=== PATIENT | male | born 1945 | race Caucasian/White ===

== ENCOUNTER 2024-03-13 11:06 | Outpatient (AMB) | payer MEDICARE, SELFPAY ==
--- NOTE | 2024-03-13 11:08 | MHC.OFFVIS ---
Intake Visit Reasons: HX Prostate CA/BPH/Stones(Prostectomy) Intake Note: Patient is present for HX PROSTATE CA/BPH/STONES Urology Medication:NONE Antibiotic Allergy:CIPRO,PENICILLIN Blood Thinner:NONE Linux Network Systems Administrator Required: No Allergies ciprofloxacin Allergy (Mild, Verified 03/13/24 11:09) Unknown Penicillins Allergy (Mild, Verified 03/13/24 11:09) Unknown HPI Comments Details: Remington is a pleasant male. He is a patient of Dr. Espana. He is seen for the following urologic conditions - prostate cancer - stress incontinence - nephrolithiasis Accompanied by his and daughter Primarily issue currently is nephrolithiasis Recommend intervention with laser of right renal stones and Uro risk analysis Nephrolithiasis Longstanding Multiple prior procedures Nothing in prior notes regarding Uro risk although patient states has been performed in the distant past Imaging - CT - right kidney 2 mm 4 mm calcification in the upper pole and 7 mm in the mid pole and 5 mm and 3 mm in the lower pole, left kidney 3 tiny 2 mm calcifications the upper pole Prostate cancer Prior radical prostatectomy Well-controlled PSA Stress incontinence Prior male sling procedure with good success [facility] Medical History (Updated 03/13/24 @ 12:38 by Julio Jeff MD) Depression Migraine 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 JANEY (stress urinary incontinence), male History of urinary frequency History of prostate cancer History of kidney stones Surgical History (Updated 03/07/24 @ 10:51 by MICHAEL Collins) History of ureteroscopy History of surgery History of lithotripsy H/O radical prostatectomy History of cystoscopy Review of Systems Const Denies chills and Denies fever(s) Card Reports no additional complaints and Denies syncope Resp Denies cough GI Denies abdominal pain and Denies heartburn Reports as per HPI and Denies change in libido Neuro Denies syncope Psych Denies change in libido Endo Denies change in libido Physical Exam Const General: cooperative, healthy appearing, comfortable and no acute distress Orientation/consciousness: patient oriented x3 HEENT Face and sinus: Yes normal facial exam Mouth: moist mucous membranes Neck Neck: Yes normal visual inspection, Yes full ROM and Yes trachea midline Chest Chest palpation & inspection: normal inspection of the chest Resp Effort & Inspection: normal respiratory effort, able to speak in complete sentences and no respiratory distress GI Inspection: Yes normal to inspection Back/Spine/Pelvis Cervical Spine: normal cervical lordosis Thoracic/Lumbar Spine: thoracic and lumbar spine normal to inspection Skin General skin exam: no rashes or lesions noted Neuro General: patient oriented x3, gait normal, tone normal and moves all extremities Extrem General: Yes normal to inspection and Yes capillary refill normal Results AMB Urinalysis, Automated UA Leukoctes 0 Kenia/uL Last Edit by ISAURA Ko on 03/13/24 11:36 UA Nitrite Negative Last Edit by ISAURA Ko on 03/13/24 11:36 UA Urobilinogen 0.2 mg/dL Last Edit by Sebas Nails CCM on 03/13/24 11:36 UA Protein 0 mg/dL Last Edit by ISAURA Ko on 03/13/24 11:36 UA pH 6.0 Last Edit by Sebas Nails [facility] on 03/13/24 11:36 UA Blood 0 Amado/uL Last Edit by Sebas Nails CCM on 03/13/24 11:36 UA Specific Lincoln 1.015 Last Edit by Sebas Nails CCM on 03/13/24 11:36 UA Ketone Negative Last Edit by Sebas Nails CCM on 03/13/24 11:36 UA Bilirubin 0 mg/dL [facility]bas [facility] 03/13/24 11:36 UA Glucose 0 mg/dL Last Edit by Sebas Nails [facility] on 03/13/24 11:36 Results Reviewed Results Reviewed: Laboratory Last Values Urine pH (Auto) 6.0 03/13/24 11:35 Specific Lincoln (Auto) 1.015 03/13/24 11:35 Urine Protein (Auto) 0 mg/dL 03/13/24 11:35 Glucose (UA)(Auto) 0 mg/dL 03/13/24 11:35 Urine Ketones (Auto) Negative 03/13/24 11:35 Urine Blood (Auto) 0 Amado/uL 03/13/24 11:35 Urine Nitrite (Auto) Negative 03/13/24 11:35 Urine Bilirubin (Auto) 0 mg/dL 03/13/24 11:35 Urine Urobilinogen (Auto) 0.2 mg/dL 03/13/24 11:35 Leukocyte Esterase (Auto) 0 Kenia/uL 03/13/24 11:35 Assessment & Plan Assessment & Plan (1) Nephrolithiasis: Code(s): N20.0 - Calculus of kidney Category: Medical Plan Ureteroscopy We discussed the nature of the decision and reasonable alternatives for performing ureteroscopy. Options such as medical therapy were discussed. Interventions include chemical dissolution, ESWL, ureteroscopy with laser lithotripsy and stent placement, PCNL. The relative uncertainties and benefits related to each alternate procedure were adequately discussed. General surgical risks including, but not limited to - pain, bleeding, infection, myocardial infarction, pulmonary embolus, deep vein thrombosis and cerebrovascular accident which may result in further hospitalization were discussed. Full disclosure of the procedure as well as all major risks, benefits and complications were discussed including but not limited to damage to the urethra, bladder and kidney infection, damage to the ureter, stent migration or malposition, scarring to the renal pelvis, remnant stone fragments, subsequent stone passage with need for secondary procedures. The overall secondary procedure rate is approximately 10-15%. The overall clearance rate is approximately 90-95%. Success of the procedure in the short-term does not necessarily guarantee that long-term success will be maintained. Suitable follow up will need to be maintained. The patient showed understanding of discussion and wishes to proceed with - cystoscopy, retrograde, ureteroscopy, possible lithotripsy/stone basketing and stent on the right side Orders: Orders URORISK 03/13/24 N20.0 - Calculus of kidney AMB Urinalysis Automated 03/13/24 Z13.9 - Encounter for screening, unspecified Patient Instructions: Imaging studies, laboratory and physical exam results were discussed and reviewed in detail. No major barriers to patient understanding were identified. An opportunity to ask questions regarding the treatment plan was provided. All questions were answered. The patient expressed understanding and agreement with the above treatment plan. The patient is aware they should contact our office by phone for worsening of their current condition or the appearance of new urologic symptoms. Compliance is encouraged with any medications and followup testing that is ordered. It is a privilege to participate in the urologic care of your patient. If you have any questions or concerns regarding treatment for the above conditions, or other urologic issues, please do not hesitate to contact me. The office telephone contact is [phone]. This note is constructed using voice recognition software. While every effort has been made to ensure accuracy teletypesetter monitor errors may have been included. Yours sincerely, Dr Julio Jeff MD, [facility] - Urology Providers of Expert, Compassionate Care for the Genitourinary System Coding Level of Care Code New Pt Level 4 (49346) Diagnoses Nephrolithiasis N20.0
== END 2024-03-13 12:44 | disposition home or self-care (01) ==
PROVIDERS: PCP Internal Medicine; Visit Provider Urology
DX: N20.0 Calculus of kidney (principal)
CPT/HCPCS: 99204

== ENCOUNTER → 2024-03-13 11:06 | Outpatient (BNVA) | payer MEDICARE, SELFPAY | PROVIDERS: PCP Internal Medicine; Visit Provider Urology | DX: N20.0 Calculus of kidney (principal) | CPT/HCPCS: 81003; 99202 ==

== ENCOUNTER 2024-04-16 05:55 | Day surgery (SDC) | payer MEDICARE, SELFPAY ==
[2024-04-12 09:48] VITALS: BMI 21.1
[2024-04-16 06:15] VITALS: BMI 22.0
[2024-04-16 06:23] VITALS: BP 118/59; PULSE 62; RESP 16; TEMP 36.9; O2SAT 98
[2024-04-16] MEDS: Lactated Ringers 1,000 ML 100 ML IVCONT (07:02)
--- NOTE | 2024-04-16 07:10 | PC.NURSE ---
Patient in preop. Per him, last time I had general anesthesia in [place], there was still food in my stomach. I followed all of the rules and ate/drank nothing after midnight, but they told me when I woke up that I still had food in my stomach . Dr. Almanza made aware of this. No new orders at this time.
--- NOTE | 2024-04-16 07:30 | P.CONAN_ITS ---
Documented by User: Jenni Caceres NP 04/13/24 10:10 HPI - Anesthesia Eval Consult details Narrative: 78yo M for Right Cystoscopy, Ureteroroscopy, Retro, Laser with stent placement Follows Cardiology for Asc aorta, aortic insufficiency. Stable at 01/2024 office visit. (also follows with [place] electronic console display operator) [facility] Active Problems Active Problems: All Active Problems Nephrolithiasis (Acute) Past Medical History Medical History (Updated 04/12/24 @ 09:47 by Rose Foreman RN) Prostate cancer GERD (gastroesophageal reflux disease) Hyperlipidemia Ascending aorta dilatation Aortic valve insufficiency Depression Migraine 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 JANEY (stress urinary incontinence), male History of urinary frequency History of prostate cancer History of kidney stones Surgical History Surgical History (Updated 04/16/24 @ 06:55 by Anay Fountain RN) Hx laparoscopic cholecystectomy History of repair of hiatal hernia History of ureteroscopy History of surgery History of lithotripsy H/O radical prostatectomy History of cystoscopy Social History Social History Are you a primary patient care technician to a significant other at home: No Do you presently have visiting nurse or other home services: No Patient Tobacco Use Status: Never used Tobacco Use of substances other than those prescribed or required for medical reasons: No Have you been hit, kicked, punched, or otherwise hurt by someone within the past year? If so, by whom?: No Are you DNR?: No Advance Directives: No Advance Directives Information Provided: Yes (HCP is Farhat (Daughter) per patient) Advance Directives on File: No Recently lost weight without trying: No How much weight loss: Not applicable Eating poorly because of decreased appetite: No Nutrition screen score: 0 Nutrition Risks: No Nutritional Risk Poor oral hygiene: No Meds Allergies Allergy/AdvReac Type Severity Reaction Status Date / Time ciprofloxacin Allergy Mild Hypertensio Verified 04/16/24 06:28 n Penicillins Allergy Mild Hypertensio Verified 04/16/24 06:28 n Home Medications ?Medication ?Instructions ?Recorded ?Confirmed ?Last Taken ?Type vwfyrxpwwx-shgzitmvrohmb-ytrqaaaq 1 cap PO Q8H PRN Headache 03/12/24 04/16/24 Unknown History 50 mg-300 mg-40 mg capsule citalopram 20 mg tablet 20 mg PO DAILY 03/12/24 04/16/24 Unknown History loperamide 2 mg capsule 2 mg PO QID PRN diarrhea 03/12/24 04/16/24 Unknown History pantoprazole 40 mg tablet,delayed 40 mg PO BID 03/12/24 04/16/24 Unknown History release pravastatin 10 mg tablet 10 mg PO DAILY 03/12/24 04/16/24 Unknown History propranolol 20 mg tablet 20 mg PO DAILY 04/16/24 04/16/24 04/15/24 History Exam Height,Weight and Vital Signs: Height 5 ft 7 in Weight 61.235 kg Narrative Narrative: EKG 01/2024 SB @ 58 ECHO 2022 Nml LV chamber size, wall thickness, and sys function LVEF 55% No regional wma Nml RV size and sys function Nml PASP Atria nml in size Ascending aortic dilatation 4.1cm Mild to mod aortic insufficiency Assessment and Plan Assessment Anesthesia Assessment: Chart Reviewed Documented by User: Kiana Almanza DO 04/16/24 07:37 [facility] Past Medical History Medical History (Updated 04/12/24 @ 09:47 by Rose Foreman RN) Prostate cancer GERD (gastroesophageal reflux disease) Hyperlipidemia Ascending aorta dilatation Aortic valve insufficiency Depression Migraine 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 JANEY (stress urinary incontinence), male History of urinary frequency History of prostate cancer History of kidney stones Family History Family history of problems with anesthesia: No Surgical History Surgical History (Updated 04/16/24 @ 06:55 by Anay Fountain RN) Hx laparoscopic cholecystectomy History of repair of hiatal hernia History of ureteroscopy History of surgery History of lithotripsy H/O radical prostatectomy History of cystoscopy History of Problems with Anesthesia: No Social History Social History Are you a primary patient care technician to a significant other at home: No Do you presently have visiting nurse or other home services: No Patient Tobacco Use Status: Never used Tobacco Use of substances other than those prescribed or required for medical reasons: No Have you been hit, kicked, punched, or otherwise hurt by someone within the past year? If so, by whom?: No Are you DNR?: No Advance Directives: No Advance Directives Information Provided: Yes (HCP is Yazgus (Daughter) per patient) Advance Directives on File: No Recently lost weight without trying: No How much weight loss: Not applicable Eating poorly because of decreased appetite: No Nutrition screen score: 0 Nutrition Risks: No Nutritional Risk Poor oral hygiene: No Meds Allergies Allergy/AdvReac Type Severity Reaction Status Date / Time ciprofloxacin Allergy Mild Hypertensio Verified 04/16/24 06:28 n Penicillins Allergy Mild Hypertensio Verified 04/16/24 06:28 n Home Medications ?Medication ?Instructions ?Recorded ?Confirmed ?Last Taken ?Type jjjyklqcwo-puijxbzwklmvu-qgrdguso 1 cap PO Q8H PRN Headache 03/12/24 04/16/24 Unknown History 50 mg-300 mg-40 mg capsule citalopram 20 mg tablet 20 mg PO DAILY 03/12/24 04/16/24 Unknown History loperamide 2 mg capsule 2 mg PO QID PRN diarrhea 03/12/24 04/16/24 Unknown History pantoprazole 40 mg tablet,delayed 40 mg PO BID 03/12/24 04/16/24 Unknown History release pravastatin 10 mg tablet 10 mg PO DAILY 03/12/24 04/16/24 Unknown History propranolol 20 mg tablet 20 mg PO DAILY 04/16/24 04/16/24 04/15/24 History Exam Exam Date and Time: 04/16/24 0730 Height,Weight and Vital Signs: Height 5 ft 7 in Weight 61.235 kg Vital Signs Temperature 98.4 F 04/16/24 06:23 Pulse Rate 62 04/16/24 06:23 Respiratory Rate 16 04/16/24 06:23 Blood Pressure 118/59 L 04/16/24 06:23 Pulse Oximetry 98 04/16/24 06:23 Oxygen Delivery Method Room Air 04/16/24 06:23 Temperature 98.4 F 04/16/24 06:23 Pulse Rate 62 04/16/24 06:23 Respiratory Rate 16 04/16/24 06:23 Blood Pressure 118/59 L 04/16/24 06:23 Pulse Oximetry 98 04/16/24 06:23 Oxygen Delivery Method Room Air 04/16/24 06:23 Airway Mallampati Class: II TM Dist: >3cm Neck ROM: Limited Loose/Missing/Broken Teeth: No (patient denies any loose or broken teeth) Heart: S1S2 Lungs: CTAb Assessment and Plan Final Anesthetic Review Family History of Problems with Anesthesia: No History of Problems with Anesthesia: No NPO: Yes ASA Class: III Final Preanesthetic Review: No Changes in Pt Med Stat, Meds/Allgs Chart Reviewed, Consent Obtained/Reviewed and Anes Risks/Benef Reviewed Patient Risk: Intermediate Procedure Risk: Low Anesthetic Plan Anesthetic Plan: GA and Agree w/ Assess. and Plan Disposition: Standard PACU
--- NOTE | 2024-04-16 07:45 | MHC.SHP ---
Pre-Procedural Eval Section A - 24 Hr Update-Section A only Date of Service: 04/16/24 The patient is an INPATIENT: No Changes since office visit: No Cold of Flu in the past 2 weeks, No New Medical Problems, No Changes in Medication and No Patient answered all questions The patient has been examined within 24 hours of the surgical procedure. The History & Physical has been completed within 30 days and I have reviewed it.: Yes Section B - Complete if H&P > 30 days Chief Complaint: Calculus of kidney Details of Present Illness: Right renal stones Relevant Family History (Specify if Yes): No Relevant Social History: None Present Medications: see Short Stay Collaborative assessment Medical History: No relevant PMH History of Previous Operations: No relevant previous surgery Allergies: Allergies Allergy/AdvReac Type Severity Reaction Status Date / Time ciprofloxacin Allergy Mild Hypertensio Verified 04/16/24 06:28 n Penicillins Allergy Mild Hypertensio Verified 04/16/24 06:28 n Review of Systems Sugical H&P ROS: Negative: Constitution, Cardiovascular, Respiratory, Neurological, Psychiatric, Hem-Onc, Allergic/Immunologic, Gastrointestinal, Genitourinary, Musculoskeletal, Integumentary, Endocrine and Eyes/Ears/Nose/Throat Exam Surgical H&P Exam: Normal: HEENT, Normal: Heart, Normal: Lungs, Normal: Extremities, Normal: Abdomen, Normal: Skin and Normal: Neurological Plan Diagnosis/Plan: Unchanged (right retrograde with laser lithotripsy) I have reviewed the history and physical and performed a pertinent physical examination on my patient. No changes have occurred unless specified. Time Spent With Patient Time: Total time managing care of this patient today ____ minutes.
--- NOTE | 2024-04-16 08:23 | W.PM.OPN ---
Operative Note Operative Note Date of Service: 04/16/24 Narrative: PreOperative Diagnosis: Right renal stones Post Operative Diagnosis: Right renal stones Procedure: - cystoscopy, right retrograde - right dilatation of ureteric orifice under fluoroscopy - right ureteroscopy, laser lithotripsy, stone basketing - right stent placement Surgeon: Dr Julio Jeff Anesthesia: General Indications for procedure: Recent emergency room admission with multiple stones at 4 and [address] scan Procedure: After informed consent was verified patient was brought to the operating placed in supine position. Anesthesia was administered per protocol. Patient was placed in modified dorsal lithotomy position and prepped and draped in a sterile fashion. Safety pause time-out and side of surgery confirmed. Antibiotics confirmed. 22 Kinyarwanda cystoscope was inserted per urethra. Bladder was normal in its entirety. Both ureteric orifices were in normal position. The right ureteric orifice was cannulated and a retrograde examination was performed. No filling defects seen within right ureter. A Sensor guidewire was placed up to the level of the renal pelvis under fluoroscopy. The rigid cystoscope was removed and the inner cannula of ureteric access sheath was used under fluoroscopy to dilate the ureteric orifice. The ureteric access sheath was placed and the inner cannula with access wire removed. The digital flexible ureteral scope was placed. The renal pelvis was examined. Two small stones consistent with CT findings found in mid pole. There were submucosal stones throughout the kidney which were small in nature. The 270 nm holmium fiber was used to break the stones into small pieces. A 1.6 Fr ZeroTip basket was used to remove stone fragments. At the completion of the stone procedure a Sensor wire was placed back into the renal pelvis. The rigid cystoscope was backloaded over the wire and advanced into the bladder. A 6 Kinyarwanda by 24 cm double-J stent was placed into the renal pelvis and bladder under a combination of fluoroscopy and direct visualization. The string was left on the stent and using a Tegaderm was attached to the penis The bladder was emptied. The patient tolerated the procedure well and was extubated in the operating room, and transferred in stable condition to the recovery area. Pathology: Stones Drains: Stent as above
[2024-04-16 08:30] VITALS: BP 131/62; PULSE 68; RESP 14; TEMP 36.6; O2SAT 98
[2024-04-16 08:35] VITALS: BP 130/61; PULSE 65; RESP 14; O2SAT 99
[2024-04-16 08:40] VITALS: BP 126/61; PULSE 69; RESP 16; O2SAT 97
[2024-04-16 08:45] VITALS: BP 117/55; PULSE 66; RESP 16; TEMP 36.6; O2SAT 97
[2024-04-16] MEDS: Acetaminophen 325 MG TABLET 650 MG PO (08:49)
[2024-04-16] MEDS: Phenazopyridine HCL 100 MG TABLET PO (08:50)
[2024-04-16 09:00] VITALS: TEMP 36.6
[2024-04-25 19:28] LABS: Stone Source RIGHT RENAL STONE
== END 2024-04-16 09:31 | disposition home or self-care (01) ==
PROVIDERS: Visit Provider Urology
PROC: (CPT 52356; principal; 2024-04-16 07:30)
DX: N20.0 Calculus of kidney (principal); Z87.442 Personal history of urinary calculi; N40.1 Benign prostatic hyperplasia with lower urinary tract symptoms; N39.3 Stress incontinence (female) (male); Z85.46 Personal history of malignant neoplasm of prostate; F32.A Depression, unspecified; G43.909 Migraine, unspecified, not intractable, without status migrainosus; Z88.0 Allergy status to penicillin; Z88.1 Allergy status to other antibiotic agents; Z98.890 Other specified postprocedural states
CPT/HCPCS: 52356; 82365; 88300; C1758; C1769; C1894; C2617; J1100; J1885; J1956; J2003; J2405; J2704; J3010; Q9967

== ENCOUNTER → 2024-04-16 05:55 | Outpatient (BNV) | payer MEDICARE, SELFPAY | PROVIDERS: Visit Provider Urology | DX: N20.0 Calculus of kidney (principal) | CPT/HCPCS: 52356; 74420 ==

== ENCOUNTER 2024-04-25 08:46 | Outpatient (AMB) | payer MEDICARE, SELFPAY ==
--- NOTE | 2024-04-25 09:07 | MHC.OFFVIS ---
Intake Visit Reasons: Stent removal/Litho(set) Intake Note: Patient is present for STENT REMOVAL/LITHO Urology Medication:TAMSULOSIN Antibiotic Allergy:PENICILLINS,CIPROFLOXACIN Blood Thinner:NONE Edging Catcher Required: No Allergies ciprofloxacin Allergy (Mild, Verified 04/25/24 09:09) Hypertension Penicillins Allergy (Mild, Verified 04/25/24 09:09) Hypertension HPI Comments Details: Remington is a pleasant male. He is a patient of Dr. Espana. He is seen for the following urologic conditions - prostate cancer - stress incontinence - nephrolithiasis Here for stent removal Stone composition pending Uro risk complete Low volume, borderline low citrate, high oxalate Stent on string Suggest 1 oz lemon juice per day Increase fluid intake to target 64-80 oz Nephrolithiasis Longstanding Multiple prior procedures Nothing in prior notes regarding Uro risk although patient states has been performed in the distant past Imaging - CT - right kidney 2 mm 4 mm calcification in the upper pole and 7 mm in the mid pole and 5 mm and 3 mm in the lower pole, left kidney 3 tiny 2 mm calcifications the upper pole Uro risk - 03/15 - low volume 1000 cc, high oxalate 37, borderline low citrate 435 Prostate cancer Prior radical prostatectomy Well-controlled PSA Stress incontinence Prior male sling procedure with good success PFSH Medical History (Updated 04/12/24 @ 09:47 by Rose Foreman RN) Prostate cancer GERD (gastroesophageal reflux disease) Hyperlipidemia Ascending aorta dilatation Aortic valve insufficiency Depression Migraine 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 JANEY (stress urinary incontinence), male History of urinary frequency History of prostate cancer History of kidney stones Surgical History (Updated 04/16/24 @ 06:55 by Anay Fountain RN) Hx laparoscopic cholecystectomy History of repair of hiatal hernia History of ureteroscopy History of surgery History of lithotripsy H/O radical prostatectomy History of cystoscopy Social History Are you a primary child care counselor to a significant other at home: No Do you presently have visiting nurse or other home services: No Patient Tobacco Use Status: Never used Tobacco Review of Systems Const Denies chills and Denies fever(s) Card Reports no additional complaints and Denies syncope Resp Denies cough GI Denies abdominal pain and Denies heartburn Reports as per HPI and Denies change in libido Neuro Denies syncope Psych Denies change in libido Endo Denies change in libido Physical Exam Const General: cooperative, healthy appearing, comfortable and no acute distress Orientation/consciousness: patient oriented x3 HEENT Face and sinus: Yes normal facial exam Mouth: moist mucous membranes Neck Neck: Yes normal visual inspection, Yes full ROM and Yes trachea midline Chest Chest palpation & inspection: normal inspection of the chest Resp Effort & Inspection: normal respiratory effort, able to speak in complete sentences and no respiratory distress GI Inspection: Yes normal to inspection Back/Spine/Pelvis Cervical Spine: normal cervical lordosis Thoracic/Lumbar Spine: thoracic and lumbar spine normal to inspection Skin General skin exam: no rashes or lesions noted Neuro General: patient oriented x3, gait normal, tone normal and moves all extremities Extrem General: Yes normal to inspection and Yes capillary refill normal Results AMB Urinalysis, Automated UA Leukoctes 125 Kenia/uL Last Edit by ISAURA Ko on 04/25/24 09:27 UA Nitrite Negative Last Edit by ISAURA Ko on 04/25/24 09:27 UA Urobilinogen 0.2 mg/dL Last Edit by ISAURA Ko on 04/25/24 09:27 UA Protein 300 mg/dL Last Edit by ISAURA Ko on 04/25/24 09:27 UA pH 6.0 Last Edit by ISAURA Ko on 04/25/24 09:27 UA Blood 200 Amado/uL Last Edit by ISAURA Ko on 04/25/24 09:27 UA Specific [place] 1.030 Last Edit by ISAURA Ko on 04/25/24 09:27 UA Ketone Negative Last Edit by ISAURA Ko on 04/25/24 09:27 UA Bilirubin 0 mg/dL Last Edit by ISAURA Ko on 04/25/24 09:27 UA Glucose 0 mg/dL Last Edit by ISAURA Ko on 04/25/24 09:27 Results Reviewed Results Reviewed: Laboratory Last Values Urine pH (Auto) 6.0 04/25/24 09:26 Specific [place] (Auto) 1.030 04/25/24 09:26 Urine Protein (Auto) 300 mg/dL 04/25/24 09:26 Glucose (UA)(Auto) 0 mg/dL 04/25/24 09:26 Urine Ketones (Auto) Negative 04/25/24 09:26 Urine Blood (Auto) 200 [place]/uL 04/25/24 09:26 Urine Nitrite (Auto) Negative 04/25/24 09:26 Urine Bilirubin (Auto) 0 mg/dL 04/25/24 09:26 Urine Urobilinogen (Auto) 0.2 mg/dL 04/25/24 09:26 Leukocyte Esterase (Auto) 125 [place]/uL 04/25/24 09:26 Assessment & Plan Assessment & Plan (1) Nephrolithiasis: Code(s): N20.0 - Calculus of kidney Category: Medical Plan Three-month follow-up renal ultrasound Orders: Orders AMB Urinalysis Automated Today Z13.9 - Encounter for screening, unspecified US renal BI 3 Months N20.0 - Calculus of kidney Patient Instructions: Imaging studies, laboratory and physical exam results were discussed and reviewed in detail. No major barriers to patient understanding were identified. An opportunity to ask questions regarding the treatment plan was provided. All questions were answered. The patient expressed understanding and agreement with the above treatment plan. The patient is aware they should contact our office by phone for worsening of their current condition or the appearance of new urologic symptoms. Compliance is encouraged with any medications and followup testing that is ordered. It is a privilege to participate in the urologic care of your patient. If you have any questions or concerns regarding treatment for the above conditions, or other urologic issues, please do not hesitate to contact me. The office telephone contact is [phone]. This note is constructed using voice recognition software. While every effort has been made to ensure accuracy medical records assistant errors may have been included. Yours sincerely, Dr Julio Jeff MD, [facility] - Urology Providers of Expert, Compassionate Care for the Genitourinary System Coding Level of Care Code Est Pt Level 3 (40825) Diagnoses Nephrolithiasis N20.0
== END 2024-04-25 09:51 | disposition home or self-care (01) ==
PROVIDERS: PCP Internal Medicine; Visit Provider Urology
DX: Z13.9 Encounter for screening, unspecified (principal); N20.0 Calculus of kidney
CPT/HCPCS: 99213

== ENCOUNTER → 2024-04-25 08:46 | Outpatient (BNVA) | payer MEDICARE, SELFPAY | PROVIDERS: PCP Internal Medicine; Visit Provider Urology | DX: N20.0 Calculus of kidney (principal) | CPT/HCPCS: 81003; 99212 ==

== ENCOUNTER 2024-05-25 09:54 | Outpatient (REF) | payer MEDICARE, SELFPAY ==
--- NOTE | ~2024-05-25 | US_ITS ---
EXAMINATION: US KIDNEY BILATERAL HISTORY: N20.0 - Calculus of kidney TECHNIQUE: Real-time grayscale ultrasound imaging of the kidneys was performed and images were reviewed. COMPARISON: There are no prior studies for comparison. FINDINGS: Right kidney: The right kidney measures 10.1 x 5.3 x 5.0 cm. The right kidney is echogenic and demonstrates cortical thinning. There is a 1.8 x 1.5 x 1.6 cm cyst in the interpolar region. There is a 6 x 4 x 9 mm nonobstructing calculus in the interpolar region. There is no hydronephrosis. Left Kidney: The left kidney measures 10.5 x 5.0 x 4.8 cm. There is mild renal cortical thinning. There are no masses. Multiple calculi are noted in the mid to lower pole regions measuring up to 6 mm in size. There is no hydronephrosis. US/US renal BI IMPRESSION: Bilateral nephrolithiasis as described without evidence of hydronephrosis. Bilateral renal cortical thinning. Electronically signed by: Daniel Emmanuel MD 05/28/2024 03:55 PM DARLENE DE LA CRUZ
== END 2024-05-25 09:55 | disposition home or self-care (01) ==
LOC: HO.HMGCX 09:54
PROVIDERS: PCP Internal Medicine; Visit Provider Urology
DX: N20.0 Calculus of kidney (principal)
CPT/HCPCS: 76775

== ENCOUNTER → 2024-05-25 10:08 | Outpatient (BNV) | payer MEDICARE, SELFPAY | PROVIDERS: PCP Internal Medicine; Visit Provider Radiology Diagnostic Radiology | DX: N20.0 Calculus of kidney (principal) | CPT/HCPCS: 76775 ==

== ENCOUNTER 2024-07-25 08:15 | Outpatient (AMB) | payer MEDICARE, SELFPAY ==
--- NOTE | 2024-07-25 08:15 | A.OFFVIS_ITS ---
Intake Visit Reasons: /US- phone call, no cell(set) Intake Note: Patient is present for telehealth 3 month/US Urology Medication:TAMSULOSIN Antibiotic Allergy:PENICILLINS,CIPROFLOXACIN Blood Thinner:NONE Twister Tender Paper Required: No Allergies ciprofloxacin Allergy (Mild, Verified 07/25/24 08:16) Hypertension Penicillins Allergy (Mild, Verified 07/25/24 08:16) Hypertension HPI Comments Details: Remington is a pleasant male. He is a patient of Dr. Espana. He is seen for the following urologic conditions - prostate cancer - stress incontinence - nephrolithiasis Telemedicine Evaluation 15 min Consultation [employer] Jaret Video Discussed stone composition - calcium oxalate monohydrate 45% Prior Uro risk showed low volume a 1000 cc in high oxalate 37 Is working to maintain fluid intake and reduce oxalate containing foods Six-month follow-up imaging with Uro risk Nephrolithiasis Longstanding Multiple prior procedures Nothing in prior notes regarding Uro risk although patient states has been performed in the distant past Imaging - CT - right kidney 2 mm 4 mm calcification in the upper pole and 7 mm in the mid pole and 5 mm and 3 mm in the lower pole, left kidney 3 tiny 2 mm calcifications the upper pole - 07/17 renal ultrasound bilateral 4 mm stones Uro risk - 03/15 - low volume 1000 cc, high oxalate 37, borderline low citrate 435 Intervention - 04/16 emergency room right ureteroscopy Composition - 04/16 Calcium Oxalate Dihydrate ([place]) 10%Calcium Oxalate Monohydrate ([place]) 45%Carbonate Apatite ([place]llite) 45% Prostate cancer Prior radical prostatectomy Well-controlled PSA Stress incontinence Prior male sling procedure with good success PFSH Medical History Prostate cancer GERD (gastroesophageal reflux disease) Hyperlipidemia Ascending aorta dilatation Aortic valve insufficiency Depression Migraine 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 JANEY (stress urinary incontinence), male History of urinary frequency History of prostate cancer History of kidney stones Surgical History Hx laparoscopic cholecystectomy History of repair of hiatal hernia History of ureteroscopy History of surgery History of lithotripsy H/O radical prostatectomy History of cystoscopy Social History Are you a primary gericare aide teacher to a significant other at home: No Do you presently have visiting nurse or other home services: No Patient Tobacco Use Status: Never used Tobacco Review of Systems Const All systems reviewed & are unremarkable except as noted in HPI and below Reports no additional complaints Resp Reports no additional complaints GI Reports no additional complaints Reports as per HPI Musc Reports no additional complaints Physical Exam Telemedicine evaluation Appropriate responses Regular breathing rate and rhythm HEENT Head: Yes normal to inspection Ears: hearing grossly normal bilaterally Eyes General: appearance normal, both eyes and all related structures Neck Neck: Yes normal visual inspection Chest Chest palpation & inspection: normal inspection of the chest Resp Effort & Inspection: normal respiratory effort and able to speak in complete sentences Telehealth Telehealth Telehealth Platform: [employer] Location of provider rendering services: practice address Location of patient: address on file Patient Identification confirmed using: Name, : Yes Telehealth method: video Patient verbally consented to treatment: Yes Patient verbally consented to billing insurance company: Yes Patient informed of any privacy concerns related to visit: Yes Minutes spent on Phone/Video with Pt.: 15 Assessment & Plan Assessment & Plan (1) Nephrolithiasis: Comment: Recurrent calcium oxalate stone Code(s): N20.0 - Calculus of kidney Category: Medical Plan Target increased fluid and decreased oxalate Orders: Orders US renal BI 6 Months N20.0 - Calculus of kidney URORISK Today N20.0 - Calculus of kidney Patient Instructions: This note is constructed using voice recognition software. While every effort has been made to ensure accuracy dental nurse errors may have been included. Imaging studies, laboratory and physical exam results were discussed and reviewed in detail. No major barriers to patient understanding were identified. An opportunity to ask questions regarding the treatment plan was provided. All questions were answered. The patient expressed understanding and agreement with the above treatment plan. The patient is aware they should contact our office by phone for worsening of their current condition or the appearance of new urologic symptoms. Compliance is encouraged with any medications and followup testing that is ordered. It is a privilege to participate in the urologic care of your patient. If you have any questions or concerns regarding treatment for the above conditions, or other urologic issues, please do not hesitate to contact me. The office telephone contact is [phone]. Sincerely, Dr Julio Jeff MD, [facility] - Urology Compassionate Specialist Care for the Genitourinary System Coding Level of Care Code Tele Est Pt Level 3 (43100) Complex EM visit Add On G2211 Diagnoses Nephrolithiasis N20.0
--- OUTSIDE RECORDS SUMMARY | 2024-07-25 08:36 | XMS_ITS ---
Author Organization [facility] Address [address] [place], [place] [phone] Care Team Providers Care Wax Blender Name Role Phone Medical [facility] are Provider [phone] ACOSTA SIERRA Unavailable [phone] REASON FOR VISIT ORDER 05.10.24 Encounters Encounter Location Date Provider Diagnosis [facility] [address] [place], [place] [phone] 06/11/2024 ACOSTA SIERRA Plan Of Treatment Next Appt Details Provider Name:ACOSTA SIERRA , 07/30/2024 09:00:00 AM, [address], [address], [place], [place], [phone], Provider Name:ACOSTA SIERRA , 08/06/2024 12:40:00 PM, [address], [address], [place], [place], [phone], Progress Notes * RONALD NICHOLS RDOB: [birth year] (79 yo M)Acc No.[id number]:06/11/2024 Patient:?RONALD NICHOLS Provider:?ACOSTA SIERRA DO :1945???Age:79 Y???Sex:Male Kris e:06/11/2024 Address:[address] [place], [id number] Pcp:[facility]ier [facility] [place] [place] [facility] Subjective: * Chief Complaints: * ???1. ORDER 05.10.24. * Medical History:? Objective: * Vitals:? Assessment: Plan: * Treatment: * Billing Information: * Visit Code:? * Procedure Codes:? * Electronic signature of VALORIE SIERRA DO on 07/25/2024 at 08:36 AM EST Sign off status: Pending * Provider:CAMERON SIERRA DO Date:?06/11 Generated for Letty foley/Emily/Wendi on:?07/25/2024 08:36 AM EST
--- OUTSIDE RECORDS SUMMARY | 2024-07-25 08:36 | XMS_ITS ---
Author Organization [facility] Address [address], [place] [id number] Care Team Providers Care Punch Finisher Name Role Phone [facility] are Provider [phone] ACOSTA SIERRA Unavailable [phone] Allergies Allergen (clinical drug ingredient) Drug/Non Drug Allergy documented on EMR Reaction Allergy Type Onset Date Status Substance with penicillin structure and antibacterial mechanism of action (substance) Penicillins (uncoded) Unknown Allergy Active azithromycin Azithromycin Unknown Drug Allergy A ctive REASON FOR VISIT Patient is present in the office for annual wellness exam with labs Medications Medication SIG (Take, Route, Frequency, Duration) Notes Start Date End Date Status Pantoprazole Sodium 40 MG 1 tablet Orall y Once a day for 90 days Active Citalopram Hydrobromide 20 MG 1 tablet Orally Once a day for 90 days Active Pravastatin Sodium 10 MG TAKE 1 TABLET B Y MOUTH EVERY NIGHT AT BEDTIME for 90 Not-Taking Cialis 20 MG 1 PO 30 MIN BEFORE SEXUAL ACTIVITY Oral for 30 05/19/2016 Not-Taking traZODone HCl 50 MG 1/2 tablet at bedtim e as needed Orally Once a day for 90 days 03/16/2024 Active rOPINIRole HCl 0.25 MG 1 tablet Orally O nce a day for 90 days 06/20/2024 Active Vital Signs Blood pressure systolic 122 mm Hg 06/20/19 25 Blood pressure diastolic 74 mm Hg 025 Heart Rate 55 /min 06/20/2024 Height 67 in 06/20/2024 Weight 149 lbs 06/20/2024 BMI 23.33 kg/m2 06/20/2024 Oximetry 97 % 06/20/2024 Encounters Encounter Location Date Provider Diagnosis [facility] [address] [facility] [address] [place], [place] [id number] 06/20/2024 ACOSTA SIERRA Encounter for genera l adult medical examination without abnormal findings Z00.00 ; Pulmonary hypertension, unspecified I27.20 ; MDD (major depressive disorder), recurrent episode, moderate F33.1 ; 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 classified elsewhere G63 ; Other terminal carman (current) drug therapy Z79.899 ; Mixed hyperlipidemia E78.2 ; Essential tremor G25.0 ; Gastroesophageal reflux disease without esophagitis K21.9 and BMI 23.0-23.9, adult Z68.23 Assessments Encounter Date Diagnosis (ICD Code) Assessment Notes Treatment Notes Treatment Clinical Notes Section Notes 06/20/2024 Encounter for general adult medical examination without abnormal findings (ICD-10 - Z00.00) PT VERBALLY CONSENTED TO ANNUAL WELLNESS EXAM 06/20/2024 Pulmonary hypertension, unspecified (ICD-10 - I27.20) Patient advised to continue current medications. I will monitor ECHO. 06/20/2024 MDD (major depressive disorder), recurrent episode, moderate (ICD-10 - F33.1) Patient advised to continue applicable medication regimen, exercise regularly and avoid substance abuse. 06/20/2024 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 classified elsewhere (ICD-10 - G63) Patient advised to continue current medications as prescribed, check glucose daily, follow a low cholesterol diet, continue daily foot exams and have annual eye exams. 06/20/2024 Other group home (current) drug therapy (ICD-10 - Z79.899) Continue current regimen 06/20/2024 Mixed hyperlipidemia (ICD-10 - E78.2) Patient has been instructed to follow a low fat diet, avoid fried foods. Exercise daily as tolerated and monitor weight. Consider Supervisor Photostat evaluation if control of Cholesterol LDL and triglycerides levels are difficult to control. Monitor for medication side effects (if taking any). Follow labs report. 06/20/2024 Essential tremor (ICD-10 - G25.0) Patient has been explained possible etiologies for tremors. She was explained about beta blockers being helpful for this issue. 06/20/2024 Gastroesophageal reflux disease without esophagitis (ICD-10 - K21.9) Patient advised to continue use of antacids. Advised to avoid spicy/citrus foods. Report issues of nausea, vomiting and issues when swallowing. 06/20/2024 BMI 23.0-23.9, adult (ICD-10 - Z68.23) RECOMMENDATIONS given include: I have advised continue to maintain healthy diet and exercise regimen. Plan Of Treatment Medication Medication Name Sig Start Date Stop Date Notes Pantoprazole Sodium 40 MG 1 tablet Orall y Once a day for 90 days Propranolol HCl 20 MG 1 tablet Orally Once a day Citalopram Hydrobromide 20 MG 1 tablet O rally Once a day for 90 days traZODone HCl 50 MG 1/2 tablet at bedtim e as needed Orally Once a day for 90 days 03/16/2024 rOPINIRole HCl 0.25 MG 1 tablet Orally O nce a day for 90 days 06/20/2024 Treatment Notes Assessment Notes Encounter for general adult medical examination without abnormal findings PT VERBALLY CONSENTED TO ANNUAL WELLNESS EXAM Other group home (current) drug therapy C ontinue current regimen Mixed hyperlipidemia Patient has been in structed to follow a low fat diet, avoid fried foods. Exercise daily as tolerated and monitor weight. Consider Supervisor Photostat evaluation if control of Cholesterol LDL and triglycerides levels are difficult to control. Monitor for medication side effects (if taking any). Follow labs report. Essential tremor Patient has been exp lained possible etiologies for tremors. She was explained about beta blockers being helpful for this issue. Gastroesophageal reflux dise ase without esophagitis Patient advised to continue use of antacids. Advised to avoid spicy/citrus foods. Report issues of nausea, vomiting and issues when swallowing. BMI 23.0-23.9, adult RECOMMENDATIONS giv en include: I have advised continue to maintain healthy diet and exercise regimen. Pending Test Test Name Order Date Thyroid Panel With TSH 06/20/2024 CMP (Comprehensive Metabolic panel) 05/24 Hemoglobin A1c 06/20/2024 CBC With Differential/Platelet Microalbumin/Creatinine Random Urine Lipid Panel 06/20/2024 Next Appt Details Follow Up: as scheduled, Livier son: Provider Name:ACOSTA SIERRA , 07/30/2024 09:00:00 AM, [address], [address], [place], [place], [phone], Provider Name:ACOSTA SIERRA , 08/06/2024 12:40:00 PM, [address], [address], [place], [place], [phone], Progress Notes * RONALD NICHOLS RDOB: [birth year] (79 yo M)Acc No.[id number]:06/20/2024 Patient:?RONALD NICHOLS Provider:?ACOSTA SIERRA, :1945???Age:79 Y???Sex:Male Kris e:06/20/2024 Address: [address] , [id number] Pcp:[facility] Subjective: * Chief Complaints: * ???1. Patient is present in the office for annual wellness exam with labs. * HPI: ???Pulmonary Hypertension:?Prior imaging/testing has included?a transthoracic echocardiogram done on 08/13/2020 noted as?[id number].?Medication(s) include?Propranolol?.?Depression Follow-up:?Medications?Citalopram Hydrobromide.?PHQ9 Score?0 as of 05/27/2022.?Interim History:? Patient presents for wellness visit and follow up labs. He reports overall he has been doing fairly well. He states he had surgery for kidney stones in the interim and recovered well. He also admits to having hand tremor with activity. He reports propranolol has not helped with tremors and wats to try something else. * ROS:?General/Constitutional:?Denies?Change in appetite.?Denies?Fatigue.?Denies?Headache.?Denies?Sleep disturbance.?Ophthalmologic:?Denies?Blurry vision.?Denies?Eye Pain.?ENT:?Denies?Decreased hearing.?Denies?Difficulty in swallowing.?Denies?Sore throat.?Endocrine:?Denies?Difficulty sleeping.?Denies?Dizziness.?Respiratory:?Denies?Breathing problems.?Denies?Cough.?Denies?Shortness of breath.?Cardiovascular:?Denies?Chest pain.?Denies?Dizziness.?Denies?Dyspnea on exertion.?Denies?Palpitations.?Gastrointestinal:?Denies?Abdominal pain.?Denies?Blood in stool.?Denies?Change in bowel habits.?Denies?Nausea.?Genitourinary:?Denies?Difficulty urinating.?Denies?Frequent urination.?Denies?Painful urination.?Musculoskeletal:?Denies?Back problems.?Denies?Joint stiffness.?Denies?Muscle aches.?Skin:?Denies?Hair changes.?Denies?Mole(s).?Denies?Rash.?Neurologic:?Denies?Balance difficulty.?Denies?Gait abnormality.?Denies?Memory loss.?Denies?Tremor.?Psychiatric:?Denies?Anxiety.?Denies?Depressed mood.?Denies?Substance abuse.? * Medical History:?Kidney dise ase, MDD. * Hospitalization/Major Diagno stic Procedure:?Nausea/Vomiting/Hematemesis 08/10/2020. * Family History:?Father: dece ased 84 yrs.?Mother: .?Migrated Family History: Documented family medical history in fatherDocumented family medical history in mother.? 1 brother at 4 years old. * Social History:?ADL:?I CAN BATHE MY SELF: YES. I CAN COOK/PREPARE MEAL: YES. I CAN FEED MYSELF: YES. I CAN REMEMBER MY NAME: YES. I CAN CLEAN MY HOUSE: YES. I CAN CONVERSE MEANINGFULLY: YES. I CAN FIND MY WAY HOME: YES. I KNOW WHERE I LIVE: YES. I CAN CONTROL MY BLADDER: YES. I CAN DRESS MYSELF: YES. I LIVE INDEPENDENTLY: YES. I KNOW THE CURRENT DATE: YES. I CAN CONTROL MY BOWEL: YES. I CAN OPERATE A MOTOR VEHICLE: YES. I CAN RECOGNIZE FAMILIAR FACES: YES. I USE PUBLIC TRANSPORTATION: NO. ???Miscellaneous:?Work Status: Retired. Housing: owns a home. Marital status: . * Medications:?Taking traZODon e HCl 50 MG Tablet 1/2 tablet at bedtime as needed Orally Once a day , Taking Pantoprazole Sodium 40 MG Tablet Delayed Release 1 tablet Orally Once a day , Taking Citalopram Hydrobromide 20 MG Tablet TAKE 1 TABLET BY MOUTH EVERY DAY Orally Once a day , Taking Propranolol HCl 20 MG Tablet 1 tablet Orally Once a day , Not-Taking Pravastatin Sodium 10 MG Tablet TAKE 1 TABLET BY MOUTH EVERY NIGHT AT BEDTIME , Not-Taking Cialis 20 MG Tablet 1 PO 30 MIN BEFORE SEXUAL ACTIVITY Oral * Allergies:?Penicillins: Jose rgy, Azithromycin. Objective: * Vitals:?HR:55/min, BP:122/74 mm Hg, Wt:149lbs, BMI:23.33Index, Ht: 67 in, Oxygen sat %:97%, Pain scale:01-10. * ???Past Orders: ???Lab:Iron and TIBC (Order Date - 07/11/2023) (Collection Date & Time - 06/11/2024 11:59 AM) ? Value Reference Range ?Iron Bind.Cap.(TIBC) 383 250-425 - mcg/dL (calc) ?Iron 184 H 50-180 - mcg/dL ?Iron Saturation 48 20-4 8 - % (calc) ???Lab:CMP (Comprehensive Nd tabolic panel) (Order Date - 07/11/2023) (Collection Date & Time - 06/11/2024 11:59 AM) ? Value Reference Range ?GLUCOSE 107 H 65-99 - mg/d L ?UREA NITROGEN (BUN) 17 7-25 - mg/dL ?CREATININE 0.90 0.70-1.28 - mg/dL ?BUN/CREATININE RATIO SEE NOTE: 622 - (calc) ?SODIUM 139 135-146 - mmo l/L ?POTASSIUM 4.3 3.5-5.3 - mmol/L ?CHLORIDE 101 98-110 - mm ol/L ?CARBON DIOXIDE 28 20-32 - mmol/L ?CALCIUM 9.4 8.6-10.3 - m g/dL ?PROTEIN, TOTAL 6.5 6.1-8 .1 - g/dL ?ALBUMIN 4.2 3.6-5.1 - g/ dL ?GLOBULIN 2.3 1.9-3.7 - g /dL (calc) ?ALBUMIN/GLOBULIN RATIO 1.8 1.0-2.5 - (calc) ?BILIRUBIN, TOTAL 1.1 0.2 -1.2 - mg/dL ?ALKALINE PHOSPHATASE 117 35-144 - U/L ?AST 22 10-35 - U/L ?ALT 17 9-46 - U/L ?EGFR 87 > OR = 60 - mL/ min/1.73m2 ???Lab:CBC With Differential /Platelet (Order Date - 07/11/2023) (Collection Date & Time - 06/11/2024 11:59 AM) ? Value Reference Range ?WBC 5.9 3.8-10.8 - Thou sand/uL ?RBC 4.34 4.20-5.80 - Mil lion/uL ?Hemoglobin 13.7 13.2-17.1 - g/dL ?Hematocrit 40.7 38.5-50.0 - % ?MCV 93.8 80.0-100.0 - fL ?MCH 31.6 27.0-33.0 - pg ?MCHC 33.7 32.0-36.0 - g/d L ?RDW 12.6 11.0-15.0 - % ?Platelets 317 140-400 - Thousand/uL ?Neutrophils 63.1 - % ?Lymphs 23.6 - % ?Monocytes 10.1 - % ?Eos 2.5 - % ?Basos 0.7 - % ?Neutrophils (Absolute) 3723 5301-0989 - cells/uL ?Lymphs (Absolute) 1392 85 0-3900 - cells/uL ?Monocytes(Absolute) 596 200-950 - cells/uL ?Eos (Absolute) 148 15-50 0 - cells/uL ?Baso (Absolute) 41 0-20 0 - cells/uL ?MPV 10.0 7.5-12.5 - fL * Examination: ???General Examination: ?GENERAL APPEARANCE:?pleasant, well nourished, well developed, in no acute distress, well hydrated.?NECK/THYROID:?normal , no thyromegaly.?HEART:?normal , no clicks , no murmurs , regular rate and rhythm.?LUNGS:?normal, clear anteriorly and posteriorly.?MUSCULOSKELETAL:?normal.?NEUROLOGIC:?intentional tremor of bilateral hands.?PSYCH:?alert, oriented , cognitive function intact , cooperative with exam.?EXTREMITIES:?no edema , normal.? Assessment: * Assessment: 1.?Encounter for general ryann lt medical examination without abnormal findings - Z00.00 (Primary)???2.?Pulmonary hypertension, unspecified - I27.20???Specify :Echo done on 08/13/2020 noted as [id number] per DC pg 9???3.?MDD (major depressive disorder), recurrent episode, moderate - F33.1???4.?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 classified elsewhere - G63???Specify :Due to IFG?5.?Other terminal carman (current) drug therapy - Z79.899???6.?Mixed hyperlipidemia - E78.2???7.?Essential tremor - G25.0???8.?Gastroesophageal reflux disease without esophagitis - K21.9???9.?BMI 23.0-23.9, adult - Z68.23??? Plan: * Treatment: 2.?Pulmonary hypertension, u nspecified? Clinical Notes: Patient advised to continue current medications. I will monitor ECHO.?? 3.?MDD (major depressive dis order), recurrent episode, moderate? Refill traZODone HCl Tablet, 50 MG, 1/2 tablet at bedtime as needed, Orally, Once a day, 90 days, 90 Tablet, Refills 1;?Refill Citalopram Hydrobromide Tablet, 20 MG, 1 tablet, Orally, Once a day, 90 days, 90 Tablet, Refills 1.?? Clinical Notes: Patient advised to continue applicable medication regimen, exercise regularly and avoid substance abuse.?? 4.?Polyneuropathy in disease s classified elsewhere? Clinical Notes: Patient advised to continue current medications as prescribed, check glucose daily, follow a low cholesterol diet, continue daily foot exams and have annual eye exams.?? 5.?Other terminal carman (current) drug therapy?LAB: Hemoglobin A1c (Ordered for 06/21/2024) ?LAB: Thyroid Panel With TSH (Ordered for 06/21/2024) Notes: Continue current regimen?? 6.?Mixed hyperlipidemia?LAB: CBC With Differential/Platelet (Ordered for 06/21/2024) ?LAB: CMP (Comprehensive Metabolic panel) (Ordered for 06/21/2024) ?LAB: Lipid Panel (Ordered for 06/21/2024) ?LAB: Microalbumin/Creatinine Random Urine (Ordered for 06/21/2024) Notes: Patient has been instructed to follow a low fat diet, avoid fried foods. Exercise daily as tolerated and monitor weight. Consider Supervisor Photostat evaluation if control of Cholesterol LDL and triglycerides levels are difficult to control. Monitor for medication side effects (if taking any). Follow labs report.?? 7.?Essential tremor? Start rOPINIRole HCl Tablet, 0.25 MG, 1 tablet, Orally, Once a day, 90 days, 90 Tablet, Refills 1;?Stop Propranolol HCl Tablet, 20 MG, 1 tablet, Orally, Once a day.?? Notes: Patient has been explained possible etiologies for tremors. She was explained about beta blockers being helpful for this issue.?? 8.?Gastroesophageal reflux d isease without esophagitis? Refill Pantoprazole Sodium Tablet Delayed Release, 40 MG, 1 tablet, Orally, Once a day, 90 days, 90, Refills 1.?? Notes: Patient advised to continue use of antacids. Advised to avoid spicy/citrus foods. Report issues of nausea, vomiting and issues when swallowing.?? 9.?BMI 23.0-23.9, adult? Notes: RECOMMENDATIONS given include: I have advised continue to maintain healthy diet and exercise regimen.?? * Procedure Codes:?1159F MED L IST DOCD IN [facility], 1160F RVW MEDS BY RX/DR IN [facility], 3028F O2 SATURATION DOC REV, 1175F FUNCTION STAT ASSESSED RVWD, 3074F SYST BP LT 130 MM HG, 3078F DIAST BP < 80 MM HG, G0439 ANNUAL WELLNESS VST; PPS SUBSQT VST, 1124F ACP DISCUSS-NO DSCNMKR DOCD, G8420 BMI<30 AND >=22 CALC & DOCU * Preventive Medicine:? ??HRAs and Screeners:?TOBACCO ASSESSMENT?Have you ever smoked??No,?Date Completed?07/11/2023,?Status:?never smoker.?ALCOHOL ASSESSMENT/SCREENING?Do you consume any alcoholic beverages??No,?Date Completed?07/11/2023,?Do you use Cannabis, Cocaine, Heroin, Hallucinogens??No.?PAIN ASSESSMENT?Do you feel any pain?No,?Pain assessment date:?07/11/2023.?FALL RISK ASSESSMENT?Fall Risk Assessment:?No falls in the past year,?Do you use any assistive devices??None,?Do you have trouble with your balance??No,?Do you experience vertigo or dizziness??No,?Have you fallen 2 or more times or have had a fall with injury in the past year??No,?Are you afraid of falling??No,?Do you have any amputations??No.?ADVANCED DIRECTIVES Date of Advancing Care Planning?07/11/2023,?Do you currently have an advanced directive??Yes,?Do you have a living will??Yes,?Do you currently have a Surrogate decision maker??Yes,?Do you have a Durable power of Site Safety Coordinator (DOA)??Yes,?Who?Daughter,?Do you have a Do Not Resuscitate (DNR) form completed??Yes,?Have you completed a 5-Wishes Packet??No.?FOOT EXAM?Foot exam done??Yes,?Date completed?07/11/2023,?Both Feet Present??Yes,?10 Toes present??Yes,?Ulcers??No,?Sensation Left Foot?Present,?Sensation Right Foot?Present.? * Follow Up:?as scheduled * Billing Information: * Visit Code:? 80209 Office Visit, Est Pt., Level 4. 25 Separate E/M. * Procedure Codes:? 1159F MED LIST DOCD IN [facility]. 1160F RVW MEDS BY RX/DR IN [facility]. 3028F O2 SATURATION DOC REV. 1175F FUNCTION STAT ASSESSED RVWD. 3074F SYST BP LT 130 MM HG. 3078F DIAST BP < 80 MM HG. G0439 ANNUAL WELLNESS VST; PPS SUBSQT VST. 1124F ACP DISCUSS-NO DSCNMKR DOCD. G8420 BMI<30 AND >=22 CALC & DOCU. * Sign off status: Completed true * Provider:?ACOSTA SIERRA DO Date:?06/20 Generated for Letty foley/Emily/Anjaliitting on:?07/25/2024 08:36 AM EST History and Physical Notes * HPI (History of Present Illness) Category Sub-Category Detail Notes Category Not es Interim History Patient pres ents for wellness visit and follow up labs. He reports overall he has been doing fairly well. He states he had surgery for kidney stones in the interim and recovered well. He also admits to having hand tremor with activity. He reports propranolol has not helped with tremors and wats to try something else. Depression Follow-up Medications Citalopram Hydrobromide PHQ9 Score 0 as of 05/27/2022 Pulmonary Hypertension Prior imaging/kay ting has included a transthoracic echocardiogram done on 08/13/2020 noted as [id number] Medication(s) include Propranolol Examination Category Sub-Category Detail Notes Category Not es General Examination GENERAL APPEARANCE: pleasant , well nourished, well developed, in no acute distress, well hydrated NECK/THYROID: normal , no thyromeg margret HEART: normal , no clicks , no murmurs , regular rate and rhythm LUNGS: normal, clear anteri shashank and posteriorly NEUROLOGIC: intentional tremor o f bilateral hands EXTREMITIES: no edema , normal MUSCULOSKELETAL: normal PSYCH: alert, oriented , co gnitive function intact , cooperative with exam
--- OUTSIDE RECORDS SUMMARY | 2024-07-25 08:37 | XMS_ITS | Clinical Summary ---
Author Organization [facility] [address] [place] [address] Address [address] [facility] [place] [address] Phone Care Team Providers Care Visual Merchandise Manager Name Role Phone Mikhail Espana MD Primary Care Provider [phone] Allergies Active Allergy Reactions Criticality Noted Date Comments Ciprofloxacin 12/23/2010 Penicillins 08/23/2010 Medications butalbital-aceta minophen-caffein e 50-300-40 mg capsule Take 1 capsule.old by mouth 2 times daily as needed (as needed for migraine). 02/26/2021 Active citalopram (CeleXA) 20 mg tablet Take 1 tablet (20 mg total) by mouth 1 (one) time each day. 02/23/2021 Active pravastatin (PRAVACHOL) 10 mg tablet Take 1 tablet (10 mg total) by mouth at bedtime. 05/05/2021 Active propranoloL (INDERAL) 40 mg tablet Take 1 tablet (40 mg total) by mouth. 11/11/2023 Active Active Problems Problem Noted Date Diagnosed Date Anxiety 03/08/2024 Migraines 03/08/2024 Ascending aorta dilatation 12/25/2020 Overview (03/08/2024): Last Assessment & Plan: Blood pressure well-controlled. Patient denies chest pain, back pain or syncope. He informs me that he has surveillance echocardiograms performed by his salesforce administrator in [place]. Allergic rhinitis 02/16/2018 Basal cell carcinoma of skin 02/16/2018 Depression 02/16/2018 Hematuria 02/16/2018 Hyperlipidemia 02/16/2018 Overview (03/08/2024): Last Assessment & Plan: Continues on his current dose of pravastatin 10 mg. His lipid panel is managed by his PCP/salesforce administrator in [place]. He informs that he has recently had a fasting panel drawn with favorable results. Will continue on his current medication and be mindful of his dietary fat intake. Nephrolithiasis 02/16/2018 Left shoulder pain 10/11/2017 Nonrheumatic aortic valve insufficiency 10/12/19 18 Tremor 10/11/2017 Headache 02/25/2017 Esophageal reflux 10/21/2016 Gallbladder calculus without cholecystitis and no obstruction 03/19/2014 Lumbar radiculopathy 02/12/2013 Immunizations Name Administration Dates Next Due Influenza trivalent, 0.5mL (Fluad) 65yo and olde r 02/23/2021 Surgical History Surgery Date Site/Laterality Comments OTHER SURGICAL HISTORY PROCEDURE: SKIN EXCISION OTHER SURGICAL HISTORY PROCEDURE: KIDNEY STONE PANEL HIATAL HERNIA REPAIR 2021 followed by repair in 2023 CHOLECYSTECTOMY 2022 Medical History Medical History Date Comments Migraines DX:Migraines Hyperlipidemia DX:Hyperlipidemi a Anxiety DX:Anxiety Social History Tobacco Use Types Packs/Day Years Used Date Smoking Tobacco: Never Smokeless Tobacco: Never Tobacco Cessation:Counseling Given: Not Answered Alcohol Use Standard Drinks/Week Comments No 0 (1 standard drink = 0.6 oz pur e alcohol) Sex and Gender Information Value Date Recorded Sex Assigned at Not on file Legal Sex Male 10:09 PM EST Gender Identity Not on file Sexual Orientation Not on file Obstetrics History Last Filed Vital Signs Vital Sign Reading Time Taken Comments Blood Pressure 108/62 04/24/2024 4:31 PM EST Pulse 68 04/24/2024 4:31 PM EST Temperature 36.2 ??C (97.2 ??F) 04/24/2024 4:31 PM ES T Respiratory Rate - - Oxygen Saturation 96% 04/24/2024 4:31 PM EST Inhaled Oxygen Concentration - - Weight 65.7 kg (144 lb 14.4 oz) 04/24/2024 4:31 PM EST Height 170.2 cm (5' 7.01 ) 04/24/2024 4:31 PM ES T Body Mass Index 22.69 04/24/2024 4:31 PM EST Plan of Treatment Upcoming Encounters Date Type Department Care Team (Late st Contact Info) Description 10/26/2024 1:15 PM EDT Office Visit Adult Medicine [facility] [address] [place] [phone] Mikhail Espana MD [address] [place] [address] Health Maintenance Due Date Last Done Comments Pneumococcal Vaccine: 50+ Years (1 of 2 - PCV) 1964 Zoster Vaccines (1 of 2) 1964 RSV Immunization Patients 60+ Years Old (1 - 1-dose 75+ series) 2020 COVID-19 Vaccine (2 - Pfizer risk series) 03/01/2022 02/08/2022 Falls Risk Assessment 05/01/2022 Medicare Annual Wellness Visit 05/01/2022 Depression Screening 04/24/2025 04/24/2024 Social Influencers of Health Screening 04/24/2025 04/24/2024 Cholesterol Screening (Lipid Panel) 10/17/2025 10/17/2020 Influenza Vaccine Discontinued 02/23/2021, , 03/01/2018, Additional history exists DTaP,Tdap,and Td Vaccines Discontinued HIB Vaccines Aged Out No longer eligi ble based on patient's age to complete this topic HPV Vaccines Aged Out No longer eligi ble based on patient's age to complete this topic Hepatitis A Vaccines Aged Out No long er eligible based on patient's age to complete this topic Hepatitis B Vaccines Aged Out No long er eligible based on patient's age to complete this topic Hepatitis C Screening Discontinued IPV Vaccines Aged Out No longer eligi ble based on patient's age to complete this topic MMR Vaccines Aged Out No longer eligi ble based on patient's age to complete this topic Meningococcal ACWY Vaccine Aged Out N o longer eligible based on patient's age to complete this topic Meningococcal B Vacine Aged Out No lo nger eligible based on patient's age to complete this topic RSV Immunization Patients Under 20 months Aged Out No longer eligible based on patient's age to complete this topic Varicella Vaccines Aged Out No longer eligible based on patient's age to complete this topic Procedures Procedure Name Priority Date/Time Associated Diagnosis Comments EXTERNAL ULTRASOUND REPORT 05/28/2024 LIPID PANEL Routine 10/17/2020 from Last 3 Months or Most Recently Relevant to Health Maintenance Results * External Ultrasound Report (05/28/2024) Anatomical Region Laterality Modality Ultrasound us Provider Onbase MD REBOLLEDO US PROCEDURES Final Resul t * Lipid panel (10/17/2020) LDL/HDL Ratio 3 0 - 4 Triglycerides 134 0 - 150 mg/dL Cholesterol 152 0 - 200 mg/dL HDL 61 >=40 mg/dL LDL Cholesterol 65 0 - 100 mg/dL Blood Venous blood specimen / Unknown us Historical Provider LAB BLOOD ORDERABLES Chelly l Result from Last 3 Months or Most Recently Relevant to Health Maintenance Insurance [facility] MEDICARE ADVANTAGE on file Care Teams Visual Merchandise Manager Relationship Specialty Start Date End Date Mikhail Espana MD [address] [place] [phone] PCP - General Internal Medicine 12/20/14
--- OUTSIDE RECORDS SUMMARY | 2024-07-25 08:37 | XMS_ITS ---
Author Organization [facility] Address [address] [place], [place] [id number] Care Team Providers Care Halal Butcher Name Role Phone [facility] are Provider [phone] FRANTZ SIERRAEW Unavailable [phone] REASON FOR VISIT Ronald & Javier Carter appoointment on June 20 Encounters Encounter Location Date Provider Diagnosis [place] [id number] [place] [address] [address] [place], [place] [id number] 06/05/2024 ACOSTA SIERRA Plan Of Treatment Next Appt Details Provider Name:ACOSTA SIERRA , 07/30/2024 09:00:00 AM, [address], [facility] [address], [place], [place], [phone], Provider Name:ACOSTA SIERRA , 08/06/2024 12:40:00 PM, [address] [place] [address], [facility] [address], [place], [place], [phone], Progress Notes * RONALD CARTER RDOB: [birth year] (79 yo M)Acc No.[id number]:06/05/2024 Patient:?RONALD CARTER :1945???Age:79 Y???Sex:Male Address: [place], [address] * true * Date:? Generated for Printi ng/Faxing/eTransmitting on:?07/25/2024 08:37 AM EST
== END 2024-07-25 08:49 | disposition home or self-care (01) ==
LOC: HO.HUSH 08:15
PROVIDERS: PCP Internal Medicine; Visit Provider Urology
DX: N20.0 Calculus of kidney (principal)
CPT/HCPCS: 99213; G2211

== ENCOUNTER → 2024-07-25 08:15 | Outpatient (BNVA) | payer MEDICARE, SELFPAY | PROVIDERS: PCP Internal Medicine; Visit Provider Urology ==

== ENCOUNTER 2024-12-04 12:01 | Outpatient (AMB) | payer MEDICARE, SELFPAY ==
[2024-12-04 12:17] VITALS: BMI 23.4
--- NOTE | 2024-12-04 12:17 | A.OFFVIS_ITS ---
Vital Signs 12/04/24 12:17 Height 5 ft 6 in Weight 145 lb BMI 23.4 Intake Visit Reasons: tremor Allergies ciprofloxacin Allergy (Mild, Verified 07/25/24 08:16) Hypertension Penicillins Allergy (Mild, Verified 07/25/24 08:16) Hypertension Medication List - Last Reconciled 12/04/24 by Oliver Landeros MD [id number]-[id number] 50-300-40 mg 1 cap PO Q8H PRN citalopram 20 mg PO DAILY loperamide 2 mg PO QID PRN pantoprazole 40 mg PO BID pravastatin 10 mg PO DAILY propranolol 20 mg PO DAILY ropinirole 0.25 mg PO DAILY tamsulosin 0.4 mg PO BEDTIME 14 days trazodone mg PO HPI Comments Details: 79 years old right-handed man, 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 He said that he was having this for maybe 5 years. Slowly it was getting worse. His father also had similar condition. It mostly affect ed his hands and his ability to hold cup of coffee or do similar things. He would spill coffee all over. There was no pain numbness or tingling in his hands. His memory was all right and there was no significant concerned about his bladder. [facility] Medical History (Updated 12/04/24 @ 12:30 by Oliver Landeros MD) Lumbar radiculopathy Gallbladder calculus without cholecystitis and no obstruction Headache Tremor Nonrheumatic aortic (valve) insufficiency Left shoulder pain Nephrolithiasis Hematuria Basal cell carcinoma of skin Allergic rhinitis Anxiety Prostate cancer GERD (gastroesophageal reflux disease) Hyperlipidemia Ascending aorta dilatation Aortic valve insufficiency Depression Migraine 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 JANEY (stress urinary incontinence), male History of urinary frequency History of prostate cancer History of kidney stones Surgical History Hx laparoscopic cholecystectomy History of repair of hiatal hernia History of ureteroscopy History of surgery History of lithotripsy H/O radical prostatectomy History of cystoscopy Social History Are you a primary geriatric care manager to a significant other at home: No Do you presently have visiting nurse or other home services: No Patient Tobacco Use Status: Never used Tobacco Review of Systems Const Details: Constitutional:?No fever, chills, fatigue, weight loss, or night sweats. HEENT:?No headache, vision changes, hearing loss, nasal congestion, sore throat. Cardiovascular:?No chest pain, palpitations, orthopnea, PND, or leg swelling. Respiratory:?No cough, shortness of breath, wheezing, or hemoptysis. Gastrointestinal:?No nausea, vomiting, abdominal pain, diarrhea, or constipation. Genitourinary:?No dysuria, frequency, incontinence, or hematuria. Musculoskeletal:?No joint pain, stiffness, weakness, or muscle aches. Neurological:? Bilateral hand tremor Psychiatric:?No anxiety, depression, mood swings, sleep disturbance, or hallucinations. Endocrine:?No heat/cold intolerance, polydipsia, polyuria, or hair/skin changes. Hematologic/Lymphatic:?No easy bruising, bleeding, or lymphadenopathy. Integumentary (Skin):?No rash, lesions, itching, or color changes. Allergic/Immunologic:?No seasonal allergies, hives, or recurrent infections. Physical Exam Neuro Other: Mental Status: Alert and oriented to person, place, and time. Normal attention. Normal spontaneous speech, fluency, and comprehension. No obvious issues with mood and memory. Affect is appropriate. Cranial Nerves: CN II: Visual dunham full to confrontation, visual acuity intact. CN III, IV, : Pupils equal, round, reactive to light and accommodation. Extraocular movements are normal. CN V: Facial sensation is normal. CN VII: Facial movements symmetrical. CN VIII: Hearing intact to bedside conversation is normal. CN IX, X: Palate elevates symmetrically. CN XI: Shoulder shrug and head turn symmetrical. CN XII: Tongue midline without atrophy or fasciculations. Motor: Deep tendon reflexes are trace to 1+. Coordination: Fiungd-oh-pynm with bilateral hand tremor. Gait and Station: Mildly unsteady tremulous gait. Extrapyramidal: Full facial expressions and blinking. No rigidity. Moderate bilateral hand mixed resting in postural or action tremor. Speech: Mild speech tremor. 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 Recommendations: He was educated about this condition and was advised to try propranolol 20 mg twice a day Medications: New propranolol 20 mg PO DAILY 60 tabs 0RF Coding Level of Care Code Tele New Pt Level 3 (56195) Diagnoses Familial tremor G25.0
--- OUTSIDE RECORDS SUMMARY | 2024-12-04 13:18 | XMS_ITS | Clinical Summary ---
Author Organization [facility] [address] [place] [address] Address [address] [place] [address] Phone Care Team Providers Care Outside Plant Supervisor Name Role Phone Mikhail Espana MD Primary Care Provider [phone] Allergies Active Allergy Reactions Criticality Noted Date [...] Anxiety 03/08/2024 Migraines 03/08/2024 Ascending aorta dilatation (CMS/HCC V24) 021 Overview (03/08/2024): Last Assessment & Plan: Blood pressure well-controlled. Patient denies chest pain, back pain or syncope. He informs me that he has surveillance echocardiograms performed by his under ground miner in [place]. Allergic rhinitis 02/16/2018 Basal cell carcinoma of skin 02/16/2018 Depression 02/16/2018 Hematuria 02/16/2018 Hyperlipidemia 02/16/2018 Overview (03/08/2024): Last Assessment & Plan: Continues on his current dose of pravastatin 10 mg. His lipid panel is managed by his PCP/under ground miner in [place]. He informs that he has recently had a fasting panel drawn with favorable results. Will continue on his current medication and be mindful of his dietary fat intake. Nephrolithiasis 02/16/2018 Left shoulder pain 10/11/2017 Nonrheumatic aortic valve insufficiency 10/12/19 18 Tremor 10/11/2017 Headache 02/25/2017 Esophageal reflux 10/21/2016 Gallbladder calculus without cholecystitis and no obstruction 03/19/2014 Lumbar radiculopathy 02/12/2013 Encounters Date Type Department Care Team Description 10/26/2024 1:15 PM EDT Office Visit Adult Medicine [address] [phone] Mikhail Espana MD Pure hypercholesterolemia (Primary Dx); Encounter for long-term (current) use of medications; History of prostate cancer; Tremor; Nonrheumatic aortic valve insufficiency; Depression, unspecified depression type; Ascending aorta dilatation (CMS/HCC V24) from Last 3 Months Immunizations Name Administration Dates Next Due Influenza [...] Sign Reading Time Taken Comments Blood Pressure 118/52 10/26/2024 1:02 PM EDT Pulse 74 10/26/2024 1:02 PM EDT Temperature 36.3 C (97.3 F) 10/26/2024 1:02 PM EDT Respiratory Rate 14 10/26/2024 1:02 PM EDT Oxygen Saturation 98% 10/26/2024 1:02 PM EDT Inhaled Oxygen Concentration - - Weight 67.6 kg (149 lb) 10/26/2024 1:02 PM EDT Height 167.6 cm (5' 6 ) 10/26/2024 1:02 PM EDT Body Mass Index 24.05 10/26/2024 1:02 PM EDT Plan of Treatment Upcoming Encounters Date Type Department Care Team (Late st Contact Info) Description 01/30/2025 10:00 AM EDT Office Visit Adult Medicine [facility] [address] [place] [phone] Geetha Boone PA [address] [place] [address] Health Maintenance Due Date Last Done Comments Pneumococcal Vaccine: 50+ Years (1 of 2 - PCV) 1964 Zoster Vaccines (1 of 2) 1964 RSV Immunization Adult Patients (1 - 1-dose 75+ series) 2020 COVID-19 Vaccine (2 - Pfizer risk series) 03/01/2022 02/08/2022 Falls Risk Assessment 05/01/2022 Medicare Annual Wellness Visit 05/01/2022 Depression Screening 04/24/2025 04/24/2024 Social Influencers of Health Screening 04/24/2025 04/24/2024 Cholesterol Screening (Lipid Panel) 10/26/2029 10/26/2024, 10/17/2020 Influenza Vaccine Discontinued 02/23/2021, , 03/01/2018, [...] age to complete this topic Meningococcal B Vaccine Aged Out No l onger eligible based on patient's age to complete this topic RSV Immunization Patients Under 20 months Aged Out No longer eligible based on patient's age to complete this topic Varicella Vaccines Aged Out No longer eligible based on patient's age to complete this topic Procedures Procedure Name Priority Date/Time Associated Diagnosis Comments LIPID PANEL WITH REFLEX TO DIRECT LDL Routine 10/26/2024 1:45 PM EDT Pure hypercholesterolemia COMPREHENSIVE METABOLIC PANEL Routine 10/26/2024 1:45 PM EDT Encounter for long-term (current) use of medications PSA TOTAL, FREE AND COMPLEXED, DIAGNOSTIC Routine 10/26/2024 1:45 PM EDT History of prostate cancer from Last 3 Months Results * PSA total, free and complexed (10/26/2024 1:45 PM EDT) PSA <0.06 0.00 - 4.00 ng/mL LAB CHEMISTRY METHOD 10/26/2024 5:59 PM EDT [facility] PSA, Complexed <0.07 0.00 - 3.00 ng/mL LAB CHEMISTRY METHOD 10/26/2024 5:59 PM EDT [facility] PSA, Free LAB CHEMISTRY METHOD 10/26/2024 5:59 PM EDT [facility] PSA, Free Pct LAB CHEMISTRY METHOD 10/26/2024 5:59 PM EDT [facility] Blood Venous blood specimen / Unknown Venipuncture / Unknown 10/26/2024 1:45 PM EDT 10/26/2024 1:45 PM EDT Narrative [facility] - 10/26/2024 5:59 PM EDT Free PSA is a calculated value. The diagnostic usefulness of % free PSA has not been established in patients with Total PSA below 2.6 or above 10 ng/mL. This test was performed using the Centaur Chemiluminescent method. PSA values obtained with other methods cannot be used interchangeably. us Mikhail Espana MD LAB BLOOD ORDERABLES Final Resu lt Performing Organization Address City/[facility]/ZIP Co de Phone Number [facility] [address] [place] [address], [place] [phone] * Lipid panel with reflex to direct LDL (10/26/2024 1:45 PM EDT) Cholesterol 160 0 - 200 mg/dL LAB CHEMISTRY METHOD 10/26/2024 4:55 PM EDT [facility] Triglycerides 76 0 - 150 mg/dL LAB CHEMISTRY METHOD 10/26/2024 4:55 PM EDT [facility] HDL 73 >=40 mg/dL LAB CHEMISTRY METHOD 10/26/2024 4:55 PM EDT [facility] LDL Calculated 72 0 - 100 mg/dL LAB CHEMISTRY METHOD 10/26/2024 4:55 PM EDT [facility] VLDL Cholesterol Denys 15.2 mg/dL LAB CHEMISTRY METHOD 10/26/2024 4:55 PM EDT [facility] Non HDL Chol. (LDL+VLDL) 87 <145 mg/dL LAB CHEMISTRY METHOD 10/26/2024 4:55 PM EDT [facility] Chol/HDL Ratio 2.2 0.0 - 4.4 LAB CHEMISTRY METHOD 10/26/2024 4:55 PM EDT [facility] Blood Venous blood specimen / Unknown Venipuncture / Unknown 10/26/2024 1:45 PM EDT 10/26/2024 1:45 PM EDT us Mikhail Espana MD LAB BLOOD ORDERABLES Final Resu lt Performing Organization Address City/[facility]/ZIP Co de Phone Number [facility] [address] [place] [address], [place] [phone] * (ABNORMAL) Comprehensive metabolic panel (10/26/2024 1:45 PM EDT) Sodium 143 133 - 145 mmol/L LAB CHEMISTRY METHOD 10/26/2024 4:55 PM [facility] Potassium 3.9 3.5 - 5.5 mmol/L LAB CHEMISTRY METHOD 10/26/2024 4:55 PM [facility] Chloride 109 96 - 110 mmol/L LAB CHEMISTRY METHOD 10/26/2024 4:55 PM [facility] CO2 29 21 - 32 mmol/L LAB CHEMISTRY METHOD 10/26/2024 4:55 PM [facility] Anion Gap 5 3 - 11 LAB CHEMISTRY METHOD 10/26/2024 4:55 PM [facility] Glucose 116(H) 70 - 100 mg/dL LAB CHEMISTRY METHOD 10/26/2024 4:55 PM [facility] BUN 15 5 - 25 mg/dL LAB CHEMISTRY METHOD 10/26/2024 4:55 PM [facility] Creatinine 0.97 0.70 - 1.30 mg/dL LAB CHEMISTRY METHOD 10/26/2024 4:55 PM [facility] eGFR 79 >=60 mL/min/1. 73m2 LAB CHEMISTRY METHOD 10/26/2024 4:55 PM [facility] Comment:Calculation based on the Chronic Kidney Disease Epidemiology Collaboration (CKD-EPI) equation refit without adjustment for race. BUN/Creatinine Ratio 15.5 LAB CHEMISTRY METHOD 10/26/2024 4:55 PM [facility] Calcium 8.5 8.5 - 10.5 mg/dL LAB CHEMISTRY METHOD 10/26/2024 4:55 PM [facility] AST (SGOT) 19 10 - 42 unit/L LAB CHEMISTRY METHOD 10/26/2024 4:55 PM EDT [facility] ALT (SGPT) 21 10 - 60 unit/L LAB CHEMISTRY METHOD 10/26/2024 4:55 PM EDT [facility] Alkaline Phosphatase 128(H) 42 - 121 unit/L LAB CHEMISTRY METHOD 10/26/2024 4:55 PM EDT [facility] Total Protein 6.3 6.0 - 8.0 g/dL LAB CHEMISTRY METHOD 10/26/2024 4:55 PM EDT [facility] Albumin 3.5 3.2 - 5.0 g/dL LAB CHEMISTRY METHOD 10/26/2024 4:55 PM EDT [facility] Total Bilirubin 0.6 0.0 - 1.4 mg/dL LAB CHEMISTRY METHOD 10/26/2024 4:55 PM EDT [facility] Blood Venous blood specimen / Unknown Venipuncture / Unknown 10/26/2024 1:45 PM EDT 10/26/2024 1:45 PM EDT us Mikhail Espana MD LAB BLOOD ORDERABLES Final Resu lt [facility] [address] [place] [address], from Last [address] [facility] MEDICARE ADVANTAGE on file Care Teams Outside Plant Supervisor Relationship Specialty Start Date End Date Mikhail Espana MD [address] [place] [phone] PCP - General Internal Medicine 12/20/14
--- OUTSIDE RECORDS SUMMARY | 2024-12-04 13:18 | XMS_ITS | Patient Health Record ---
Author Organization [facility] Address [address], [place] [id number] Care Team Providers Care Boom Cat Operator Name Role Phone [facility] are Provider [phone] ACOSTA SIERRA Unavailable [phone] YFN PADILLA Unavailable [phone] ELKIN DOMÍNGUEZ Unavailable Unavailable Allergies Allergen (clinical drug ingredient) Drug/Non Drug Allergy documented on EMR Reaction Allergy Type Onset Date Status Substance with penicillin structure and antibacterial mechanism of action (substance) Penicillins (uncoded) Unknown Allergy Active azithromycin Azithromycin Unknown Drug Allergy A ctive Results Component Value Reference Range Notes Lipid Panel Reviewed date:08/01/2024 12:41:26 PM Interpretation: Performing Lab:[facility] [place], [address] [place] [address], Phone - [phone], Director - David Notes/Report: Cholesterol, Total 163 100-199 mg/dL Triglycerides 106 0-149 mg/dL HDL Cholesterol 64 >39 mg/dL VLDL Cholesterol Denys 19 5-40 mg/dL LDL Chol Calc (NIH) 80 0-99 mg/dL Microalbumin/Creatinine [place] om Urine Reviewed date:08/01/2024 12:41:26 PM Interpretation: Performing Lab:[facility] [place], [address] [place] [address], Phone - [phone], Director - David Notes/Report: Creatinine, Urine 111.7 Not Estab. mg/dL Albumin, Urine <3.0 Not Estab. ug/mL Alb/Creat Ratio <3 0-29 mg/g creat Normal: 0 - 29 Moderately increased: 30 - 300 Severely increased: >300 CBC With Differential/Platel et Reviewed date:08/01/2024 12:41:26 PM Interpretation: Performing Lab:[facility], Phone - [phone], Director - David Notes/Report: WBC 6.4 3.4-10.8 x10E3/uL RBC 4.42 4.14-5.80 x10E6/uL Hemoglobin 14.1 13.0-17.7 g/dL Hematocrit 42.4 37.5-51.0 % MCV 96 79-97 fL MCH 31.9 26.6-33.0 pg MCHC 33.3 31.5-35.7 g/dL RDW 12.8 11.6-15.4 % Platelets 345 150-450 x10E3/uL Neutrophils 61 Not Estab. % Lymphs 25 Not Estab. % Monocytes 9 Not Estab. % Eos 4 Not Estab. % Basos 1 Not Estab. % Neutrophils (Absolute) 4.0 1.4-7.0 x10E3/uL Lymphs (Absolute) 1.6 0.7-3.1 x10E3/uL Monocytes(Absolute) 0.6 0.1-0.9 x10E3/uL Eos (Absolute) 0.2 0.0-0.4 x10E3/uL Baso (Absolute) 0.0 0.0-0.2 x10E3/uL Immature Granulocytes 0 Not Estab. % Immature Grans (Abs) 0.0 0.0-0.1 x10E3/uL Hemoglobin A1c Reviewed date:08/01/2024 12:41:26 PM Interpretation: Performing Lab:[facility] [address] [place] [address], Phone - [phone], Director - David Notes/Report: Hemoglobin A1c 5.6 4.8-5.6 % . Prediabetes: 5.7 - 6.4 Diabetes: >6.4 Glycemic control for adults with diabetes: <7.0 CMP (Comprehensive Metabolic panel) Reviewed date:08/01/2024 12:41:26 PM Interpretation: Performing Lab:[facility], Phone - [phone], Director - David Notes/Report: Glucose 107 70-99 mg/dL BUN 14 8-27 mg/dL Creatinine 1.03 0.76-1.27 mg/dL eGFR 74 >59 mL/min/1.73 BUN/Creatinine Ratio 14 10-24 Sodium 142 134-144 mmol/L Potassium 4.7 3.5-5.2 mmol/L Chloride 106 96-106 mmol/L Carbon Dioxide, Total 26 20-29 mmol/L Calcium 9.2 8.6-10.2 mg/dL Protein, Total 6.0 6.0-8.5 g/dL Albumin 4.0 3.8-4.8 g/dL Globulin, Total 2.0 1.5-4.5 g/dL Bilirubin, Total 0.7 0.0-1.2 mg/dL Alkaline Phosphatase 141 44-121 IU/L AST (SGOT) 18 0-40 IU/L ALT (SGPT) 16 0-44 IU/L Thyroid Panel With TSH Reviewed date:08/01/2024 12:41:26 PM Interpretation: Performing Lab:[facility] [place], Phone - [phone], Director - David Notes/Report: TSH 2.930 0.450-4.500 uIU/mL Thyroxine (T4) 5.9 4.5-12.0 ug/dL T3 Uptake 27 24-39 % Free Thyroxine Index 1.6 1.2-4.9 Reason For Referral Reason Abdomen Ultrasound: Emphasis on Right Hemiabdomen. Diagnosis 1 Generalized abdomina l pain (R10.84) Referring Provider First Name ELKIN Referring Provider Last Name CATRACHITA [facility] Referred Provider Specialty Radiology General Notes REFERRAL, REVIEW 03:21:54 PM >chk under DI. Referral Priority Routine Reason Essential tremor Diagnosis 1 Essential tremor (G2 5.0) Referral Organization [facility] Referring Provider First Name ACOSTA Referring Provider Last Name SIERRA Referring Provider Speciality [facility] Referred Provider Specialty Neurology General Notes Sangeetha Umana 2024 03:41:44 PM >Please schedule with Josefina Hope Brandy 08/06/2024 03:53:26 PM >PT HAS APPT 4.21.25 Referral Priority Routine Reason tremors Diagnosis 1 Essential tremor (G2 5.0) Referral Organization [facility] Referring Provider First Name ACOSTA Referring Provider Last Name SIERRA Referring Provider Speciality Internal M edicine Referred Provider JOSE RAFAEL VALENZUELA Referred Provider Specialty Neurology General Notes MED, [employer] 08/23/2024 03:21:28 PM >per te, clinical sent to dr hussain valenzuela, p# , f#[phone] , [facility] Referral Priority Routine Medications Medication SIG (Take, Route, Frequency, Duration) Notes Start Date End Date Status rOPINIRole HCl 0.5 MG 1 tablet Orally On ce a day; Duration: 90 days 06/20/2024 Active Citalopram Hydrobromide 20 MG 1 tablet Orally Once a day; Duration: 90 days Active Pantoprazole Sodium 40 MG 1 tablet Orall y Once a day; Duration: 90 days Active Cialis 20 MG 1 PO 30 MIN BEFORE SEXUAL ACTIVITY Oral; Duration: 30 05/19/2016 Not-Taking Pravastatin Sodium 10 MG TAKE 1 TABLET B Y MOUTH EVERY NIGHT AT BEDTIME; Duration: 90 Not-Taking traZODone HCl 50 MG 1/2 tablet at bedtim e as needed Orally Once a day; Duration: 90 days 03/16/2024 Active Problems Problem Type SNOMED Code ICD Code Onset Dates Problem Status W/U Status Risk Notes Problem Mixed hyperlipidemia (953322859) Mixed hyperlipidemia (E78.2) Active confirmed Problem Moderate recurrent major depression (24779293) Major depressive disorder, recurrent, moderate (F33.1) Active confirmed Problem Recurrent major depression in full remission (37500688) Major depressive disorder, recurrent, in full remission (F33.42) Active confirmed Problem Essential tremor (676318715) Essential tremor (G25.0) Active confirmed Problem Polyneuropathy (98427617) 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) Active confirmed secondary to IFG, Glucose 109 as of 07/04/2023 Problem Problem, abnormal examination (02865377) Encounter for general adult medical examination with abnormal findings (Z00.01) Active confirmed Problem Pulmonary hypertension (02409875) Pulmonary hypertension, unspecified (I27.20) Active confirmed Problem Anxiety (43601795) Anxiety (F41.9) Active confi rmed Problem Gastroesophageal reflux disease without esophagitis (645103528) Gastroesophageal reflux disease without esophagitis (K21.9) Active confirmed Problem Gastroesophageal reflux disease (299436124) GERD without esophagitis (K21.9) Active confirmed Problem History of excision of intestinal structure (824934618) S/P cholecystectomy (Z90.49) Active confirmed Problem Acquired hypertrophic pyloric stenosis (68413570) Gastric outlet obstruction (K31.1) Active confirmed Problem Moderate recurrent major depression (05937123) MDD (major depressive disorder), recurrent episode, moderate (F33.1) Active confirmed Problem Bradycardia (48257552) Chronic sinus bradycardia (R00.1) Active confirmed Problem Mild recurrent major depression (40744408) Major depressive disorder, recurrent, mild (F33.0) 2014 Active confirmed [id number] - Problem Male erectile disorder (955651425) Male erectile disorder (F52.21) 2014 Active confirmed [id number] - Problem Atherosclerosis of aorta (19413867) Atherosclerosis of aorta (I70.0) 2015 Active confirmed CXR done on 05/15/2023 per DC pg 23 Problem History of malignant neoplasm of prostate (624228965) Personal history of malignant neoplasm of prostate (Z85.46) 2014 Active confirmed [id number] - Problem Cataract (720353330) Unspecified cataract (H26.9) 2014 Problem resolved confirmed [id number] - Problem Low back pain (090299508) Low back pain (M54.5) 2015 Problem resolved confirmed [id number] - Problem Calculus of kidney (68697084) Calculus of kidney (N20.0) 2015 Problem resolved confirmed [id number] - Problem Urolithiasis (disorder) (20406619) Urinary calculus, unspecified (N20.9) 2015 Problem resolved confirmed [id number] - Problem Urinary tract infectious disease (disorder) (88859174) Urinary tract infection, site not specified (N39.0) 2015 Problem resolved confirmed [id number] - Problem Adult health examination (235301134) Encounter for general adult medical examination without abnormal findings (Z00.00) 2016 Problem resolved confirmed [id number] - Problem BMI less than 20 (445747228) Body mass index (BMI) 19 or less, adult (Z68.1) 2014 Problem resolved confirmed [id number] - Problem Normal body mass index (73028790) Body mass index (BMI) 24.0-24.9, adult (Z68.24) 2015 Problem resolved confirmed [id number] - Problem Body mass index 25-29 - overweight (397761134) Body mass index (BMI) 28.0-28.9, adult (Z68.28) 2016 Problem resolved confirmed [id number] - Vital Signs Heart Rate 57 /min 08/06/2024 Blood pressure diastolic 42 mm Hg 08/06/2024 Oximetry 97 % 08/06/2024 Height 67 in 08/06/2024 Blood pressure systolic 117 mm Hg 08/06/2024 Weight 145 lbs 08/06/2024 BMI 22.71 kg/m2 08/06/2024 Encounters Encounter Location Date Provider Diagnosis [address] [id number] 03/16/2024 [facility] discharge follow-up Z09 ; Pulmonary hypertension, unspecified I27.20 ; 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 classified elsewhere G63 ; Major depressive disorder, recurrent, moderate F33.1 ; Atherosclerosis of aorta I70.0 ; Major depressive disorder, recurrent, in full remission F33.42 ; Gastroesophageal reflux disease without esophagitis K21.9 ; Anxiety F41.9 ; Essential tremor G25.0 ; History of prostate cancer Z85.46 ; Personal history of malignant neoplasm of prostate Z85.46 and Generalized abdominal pain R10.84 [facility] [address] [place], [place] [id number] 06/20/2024 ACOSTA SIERRA Encounter for genera l adult medical examination without abnormal findings Z00.00 ; Pulmonary hypertension, unspecified I27.20 ; MDD (major depressive disorder), recurrent episode, moderate F33.1 ; 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 classified elsewhere G63 ; Other superintendent terminal (current) drug therapy Z79.899 ; Mixed hyperlipidemia E78.2 ; Essential tremor G25.0 ; Gastroesophageal reflux disease without esophagitis K21.9 and BMI 23.0-23.9, adult Z68.23 [facility] [address] [place], [place] [id number] 07/30/2024 ACOSTA SIERRA Mixed hyperlipidemia E78.2 ; Other superintendent terminal (current) drug therapy Z79.899 ; Atherosclerosis of aorta I70.0 ; Calculus of kidney N20.0 and IFG (impaired fasting glucose) R73.01 [facility] [address] [id number] 08/06/2024 ACOSTA SIERRA MDD (major depressiv e disorder), recurrent episode, moderate F33.1 ; Pulmonary hypertension, unspecified I27.20 ; Other superintendent terminal (current) drug therapy Z79.899 ; Essential tremor G25.0 ; Encounter for screening for other disorder Z13.89 and BMI 22.0-22.9, adult Z68.[address], [place] [id number] 03/10/[address], [place] [id number] 03/11/[address], [place] [id number] 03/11/[address], [place] [id number] 08/21/[address], [place] [id number] 03/10/2024 ACOSTA SIERRA [address], [place] [id number] 03/12/[address], [place] [id number] 03/21/2024 ELKINJANIS DOMÍNGUEZ [address], [place] [id number] 03/27/2024 ELKIN DOMÍNGUEZ [facility] [address] [id number] 06/05/2024 ACOSTA SIERRA Assessments Encounter Date Diagnosis (ICD Code) Assessment Notes Treatment Notes Treatment Clinical Notes Section Notes 03/16/2024 Pulmonary hypertension, unspecified (ICD-10 - I27.20) Stable Patient, currently without SOB, DUNN, orthopnea, Paroxysmal Nocturnal Dyspnea and swollen legs. No variations on current plan of care. 03/16/2024 Hospital discharge follow-up (ICD-10 - Z09) Medications, labs, hospital records reviewed. Will continue to monitor the patient. He attended to ER due to high Anxiety remaining there several hours and leaving with Trazodone is currently taking. 06/20/2024 Encounter for general adult medical examination without abnormal findings (ICD-10 - Z00.00) PT VERBALLY CONSENTED TO ANNUAL WELLNESS EXAM 06/20/2024 Pulmonary hypertension, unspecified (ICD-10 - I27.20) Patient advised to continue current medications. I will monitor ECHO. 08/06/2024 Pulmonary hypertension, unspecified (ICD-10 - I27.20) Patient advised to continue current medications. I will monitor ECHO. 08/06/2024 MDD (major depressive disorder), recurrent episode, moderate (ICD-10 - F33.1) Patient advised to continue applicable medication regimen, exercise regularly and avoid substance abuse. 07/30/2024 Mixed hyperlipidemia (ICD-10 - E78.2) 07/30/2024 Other group home (current) drug therapy (ICD-10 - Z79.899) 08/06/2024 Other group home (current) drug therapy (ICD-10 - Z79.899) Labs placed 06/20/2024 MDD (major depressive disorder), recurrent episode, moderate (ICD-10 - F33.1) Patient advised to continue applicable medication regimen, exercise regularly and avoid substance abuse. 03/16/2024 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 classified elsewhere (ICD-10 - G63) Stable. Patient has been encouraged to perform monthly foot exam and received advice about checking for any signs of wounds and/or ulcers. No current unsteadiness gait. 03/16/2024 Major depressive disorder, recurrent, moderate (ICD-10 - F33.1) Patient states no suicidal attempts, no suicidal ideas at the moment of evaluation. Patient has been recommended to start an exercise program and meeting with support groups. 06/20/2024 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 classified elsewhere (ICD-10 - G63) Patient advised to continue current medications as prescribed, check glucose daily, follow a low cholesterol diet, continue daily foot exams and have annual eye exams. 08/06/2024 Essential tremor (ICD-10 - G25.0) Patient has been explained possible etiologies for tremors. She was explained about beta blockers being helpful for this issue. 07/30/2024 Atherosclerosis of aorta (ICD-10 - I70.0) 07/30/2024 Calculus of kidney (ICD-10 - N20.0) 08/06/2024 Encounter for screening for other disorder (ICD-10 - Z13.89) 06/20/2024 Other group home (current) drug therapy (ICD-10 - Z79.899) Continue current regimen 03/16/2024 Atherosclerosis of aorta (ICD-10 - I70.0) Patient advised to continue low cholesterol diet and maintain regular exercise routine. No variations on current Pravastatin. 03/16/2024 Major depressive disorder, recurrent, in full remission (ICD-10 - F33.42) Stable Patient who stated compliance with medication and advice and denied suicidal thoughts and attempts. Patient has been recommended to start an aerobic exercise program and encouraged meeting Support Groups. 06/20/2024 Mixed hyperlipidemia (ICD-10 - E78.2) Patient has been instructed to follow a low fat diet, avoid fried foods. Exercise daily as tolerated and monitor weight. Consider Customer Advocate evaluation if control of Cholesterol LDL and triglycerides levels are difficult to control. Monitor for medication side effects (if taking any). Follow labs report. 08/06/2024 BMI 22.0-22.9, adult (ICD-10 - Z68.22) Pt advised to increase calorie and protein intake 07/30/2024 IFG (impaired fasting glucose) (ICD-10 - R73.01) 06/20/2024 Essential tremor (ICD-10 - G25.0) Patient has been explained possible etiologies for tremors. She was explained about beta blockers being helpful for this issue. 03/16/2024 Gastroesophageal reflux disease without esophagitis (ICD-10 - K21.9) 03/16/2024 Anxiety (ICD-10 - F41.9) According to his recent severe acute anxiety exacerbation, He received explanation additionally to medication prescribed at ER where he attended some days ago, with an acceptable response. He was encouraged adhering to medication and coiunselling. 06/20/2024 Gastroesophageal reflux disease without esophagitis (ICD-10 - K21.9) Patient advised to continue use of antacids. Advised to avoid spicy/citrus foods. Report issues of nausea, vomiting and issues when swallowing. 06/20/2024 BMI 23.0-23.9, adult (ICD-10 - Z68.23) RECOMMENDATIONS given include: I have advised continue to maintain healthy diet and exercise regimen. 03/16/2024 Essential tremor (ICD-10 - G25.0) 03/16/2024 History of prostate cancer (ICD-10 - Z85.46) 03/16/2024 Personal history of malignant neoplasm of prostate (ICD-10 - Z85.46) [id number]- Currently asymptomatic and periodically attending to Oncologist: No currently receiving any specific treatment by mentioned Specialist. 03/16/2024 Generalized abdominal pain (ICD-10 - R10.84) 03/16/2024 Other Plan Of Treatment Future Test Test Name Order Date CMP (Comprehensive Metabolic panel) 10/2020 PSA (FREE AND TOTAL) 04/27/2021 CBC With Differential/Platelet Lipid Panel 04/27/2021 CMP (Comprehensive Metabolic panel) 09/2022 Vitamin B12, Serum 05/27/2022 Hemoglobin A1c 05/27/2022 CBC With Differential/Platelet Lipid Panel 05/27/2022 Vitamin B12, Serum 07/11/2023 PSA (FREE AND TOTAL) 07/11/2023 Lipid Panel 07/11/2023 US Abdomen Complete 03/19/2024 CMP (Comprehensive Metabolic panel) 07/21 CBC With Differential/Platelet Microalbumin/Creatinine Random Urine Lipid Panel 08/06/2024 Next Appt Details Provider Name:DICKSON CALDERA, 1 09:20:00 AM, [address] , [facility] [address], [place], [id number], Insurance Providers Payer Name Payer Address Payer Phone Subscriber Number Group Number Insured Name Patient Relationship to Insured Coverage Start Date Coverage End Date [employer] [address] [address] [place], [place] [id number] RONALD NICHOLS Self - patient is the insured 3 Medical (General) History Medical History History ICD Code Kidney disease MDD Hospitalization History Reason Date(Month/Year) Nausea/Vomiting/Hematemesis 08/10/2020
== END 2024-12-04 12:39 | disposition home or self-care (01) ==
LOC: HO.HSM 12:01
PROVIDERS: PCP Internal Medicine; Visit Provider Psychiatry & Neurology Neurology
DX: G25.0 Essential tremor (principal)
CPT/HCPCS: 99203

== ENCOUNTER → 2024-12-04 12:01 | Outpatient (BNVA) | payer MEDICARE, SELFPAY | PROVIDERS: PCP Internal Medicine; Visit Provider Psychiatry & Neurology Neurology | DX: G25.0 Essential tremor (principal) | CPT/HCPCS: 99202 ==

== ENCOUNTER 2025-01-01 13:07 | Outpatient (AMB) | payer MEDICARE, SELFPAY ==
--- NOTE | 2025-01-01 13:14 | A.OFFVIS_ITS ---
Intake Visit Reasons: 4 WK Follow up Allergies ciprofloxacin Allergy (Mild, Verified 07/25/24 08:16) Hypertension Penicillins Allergy (Mild, Verified 07/25/24 08:16) Hypertension HPI Comments Details: 79 years old right-handed man, a retired metal miner blasting from [employer], was here for tremor. Propranlol helped and he was able to sign some checks but it was not easy yet. [facility] Medical History (Updated 12/04/24 @ 12:30 by Oliver Landeros MD) Lumbar radiculopathy Gallbladder calculus without cholecystitis and no obstruction Headache Tremor Nonrheumatic aortic (valve) insufficiency Left shoulder pain Nephrolithiasis Hematuria Basal cell carcinoma of skin Allergic rhinitis Anxiety Prostate cancer GERD (gastroesophageal reflux disease) Hyperlipidemia Ascending aorta dilatation Aortic valve insufficiency Depression Migraine 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 JANEY (stress urinary incontinence), male History of urinary frequency History of prostate cancer History of kidney stones Surgical History Hx laparoscopic cholecystectomy History of repair of hiatal hernia History of ureteroscopy History of surgery History of lithotripsy H/O radical prostatectomy History of cystoscopy Social History Are you a primary childbirth and infant care teacher to a significant other at home: No Do you presently have visiting nurse or other home services: No Patient Tobacco Use Status: Never used Tobacco Physical Exam Neuro Other: Mental Status: Alert and oriented to person, place, and time. Normal attention. Normal spontaneous speech, fluency, and comprehension. No obvious issues with mood and memory. Affect is appropriate. Cranial Nerves: CN II: Visual dunham full to confrontation, visual acuity intact. CN III, IV, : Pupils equal, round, reactive to light and accommodation. Extraocular movements are normal. CN V: Facial sensation is normal. CN VII: Facial movements symmetrical. CN VIII: Hearing intact to bedside conversation is normal. CN IX, X: Palate elevates symmetrically. CN XI: Shoulder shrug and head turn symmetrical. CN XII: Tongue midline without atrophy or fasciculations. Extrapyramidal: Full facial expressions and blinking. No rigidity. Movements are appropriate with no tremor or abnormality. Speech: Normal; no dysarthria or tremor. Assessment & Plan Assessment & Plan (1) Familial tremor: Code(s): G25.0 - Essential tremor Category: Medical Plan Impression: Benign essential tremor Rec: a: Continue propranalol 20mg bid b: Add primidone 50mg one at night Medications: New primidone 50 mg PO BEDTIME 90 tabs 0RF Refilled propranolol 20 mg PO DAILY 180 tabs 0RF Coding Level of Care Code Est Pt Level 4 (31562) Diagnoses Familial tremor G25.0
--- OUTSIDE RECORDS SUMMARY | 2025-01-01 13:56 | XMS_ITS | Clinical Summary ---
Author Organization [facility] [address] [place] [address] Address [address] [facility] [place] [address] Phone Care Team Providers Care Voice Engineer Name Role Phone Mikhail Espana MD Primary Care Provider [phone] Allergies Active Allergy Reactions Criticality Noted Date [...] he has surveillance echocardiograms performed by his manager economic in [place]. Allergic rhinitis 02/16/2018 Basal cell carcinoma of skin 02/16/2018 Depression 02/16/2018 Hematuria 02/16/2018 Hyperlipidemia 02/16/2018 Overview (03/08/2024): Last Assessment & Plan: Continues on his current dose of pravastatin 10 mg. His lipid panel is managed by his PCP/manager economic in [place]. He informs that he has recently had [...] 1:15 PM EDT Office Visit Adult Medicine [address] [phone] Mikhail Espana MD Pure hypercholesterolemia (Primary Dx); [...] 10:00 AM EDT Office Visit Adult Medicine [facility] [address] [place] [phone] Geetha Boone PA [address] [place] [address] Health Maintenance Due Date Last Done Comments Zoster Vaccines (1 of 2) 1964 Pneumococcal Vaccine: 50+ Years (1 of 1 - PCV) 1995 RSV Immunization Adult Patients (1 - 1-dose 75+ series) 2020 COVID-19 Vaccine (2 - Pfizer risk series) 03/01/2022 02/08/2022 Falls Risk Assessment 05/01/2022 Medicare Annual Wellness Visit 05/01/2022 Depression Screening 05/23/2024 Social Influencers of Health Screening 04/24/2025 04/24/2024 [...] LAB CHEMISTRY METHOD 10/26/2024 5:[address] [facility] PSA, Complexed <0.07 0.00 - 3.00 ng/mL LAB CHEMISTRY METHOD 10/26/2024 5:[address] [facility] PSA, Free LAB CHEMISTRY METHOD 10/26/2024 5:[address] [facility] PSA, Free Pct LAB CHEMISTRY METHOD 10/26/2024 5:[address] [facility] Blood Venous blood specimen / Unknown Venipuncture / Unknown 10/26/2024 1:45 PM EDT 10/26/2024 1:[address] [facility] - 10/26/2024 5:59 PM EDT [...] ORDERABLES Final Resu lt Performing Organization Address [facility]/ZIP Co de Phone Number [facility] [address] [place] [address], [place] [phone] * Lipid panel with reflex to direct LDL (10/26/2024 1:45 PM EDT) Cholesterol 160 0 - 200 mg/dL LAB CHEMISTRY METHOD 10/26/2024 4:[address] [facility] Triglycerides 76 0 - 150 mg/dL LAB CHEMISTRY METHOD 10/26/2024 4:[address] [facility] HDL 73 >=40 mg/dL LAB CHEMISTRY METHOD 10/26/2024 4:[address] [facility] LDL Calculated 72 0 - 100 mg/dL LAB CHEMISTRY METHOD 10/26/2024 4:[address] [facility] VLDL Cholesterol Denys 15.2 mg/dL LAB CHEMISTRY METHOD 10/26/2024 4:[address] [facility] Non HDL Chol. (LDL+VLDL) 87 <145 mg/dL LAB CHEMISTRY METHOD 10/26/2024 4:[address] [facility] Chol/HDL Ratio 2.2 0.0 - 4.4 LAB CHEMISTRY METHOD 10/26/2024 4:[address] [facility] Blood Venous blood specimen / Unknown Venipuncture / Unknown 10/26/2024 1:45 PM EDT 10/26/2024 1:45 PM EDT us Mikhail Espana MD LAB BLOOD ORDERABLES Final Resu lt Performing Organization Address [facility]/ZIP Co de Phone Number [facility] [address] [place] [address], [place] [phone] * (ABNORMAL) Comprehensive metabolic panel (10/26/2024 1:45 PM EDT) Sodium 143 133 - 145 mmol/L LAB CHEMISTRY METHOD 10/26/2024 4:55 PM [facility] Potassium 3.9 3.5 - 5.5 mmol/L LAB CHEMISTRY METHOD 10/26/2024 4:55 PM [facility] Chloride 109 96 - 110 mmol/L LAB CHEMISTRY METHOD 10/26/2024 4:55 PM [facility] CO2 29 21 - 32 mmol/L LAB CHEMISTRY METHOD 10/26/2024 4:55 PM [facility] Anion Gap 5 3 - 11 LAB CHEMISTRY METHOD 10/26/2024 4:55 PM [facility] Glucose 116(H) 70 - 100 mg/dL LAB CHEMISTRY METHOD 10/26/2024 4:55 PM [facility] BUN 15 5 - 25 mg/dL LAB CHEMISTRY METHOD 10/26/2024 4:55 PM [facility] Creatinine 0.97 0.70 - 1.30 mg/dL LAB CHEMISTRY METHOD 10/26/2024 4:55 PM [facility] eGFR 79 >=60 mL/min/1. 73m2 LAB CHEMISTRY METHOD 10/26/2024 4:55 PM [facility] Comment:Calculation based on the Chronic Kidney Disease Epidemiology Collaboration (CKD-EPI) equation refit without adjustment for race. BUN/Creatinine Ratio 15.5 LAB CHEMISTRY METHOD 10/26/2024 4:55 PM [facility] Calcium 8.5 8.5 - 10.5 mg/dL LAB CHEMISTRY METHOD 10/26/2024 4:55 PM [facility] AST (SGOT) 19 10 - 42 unit/L LAB CHEMISTRY METHOD 10/26/2024 4:[address] [facility] ALT (SGPT) 21 10 - 60 unit/L LAB CHEMISTRY METHOD 10/26/2024 4:[address] [facility] Alkaline Phosphatase 128(H) 42 - 121 unit/L LAB CHEMISTRY METHOD 10/26/2024 4:[address] [facility] Total Protein 6.3 6.0 - 8.0 g/dL LAB CHEMISTRY METHOD 10/26/2024 4:[address] [facility] Albumin 3.5 3.2 - 5.0 g/dL LAB CHEMISTRY METHOD 10/26/2024 4:[address] [facility] Total Bilirubin 0.6 0.0 - 1.4 mg/dL LAB CHEMISTRY METHOD 10/26/2024 4:[address] [facility] Blood Venous blood specimen / Unknown Venipuncture / Unknown 10/26/2024 1:45 PM EDT 10/26/2024 1:45 PM EDT us Mikhail Espana MD LAB BLOOD ORDERABLES Final Resu lt [facility] [address] [place] [address], from Last 3 Months Insurance [employer] on file Care Teams Voice Engineer Relationship Specialty Start Date End Date Mikhail Espana MD PCP - General Internal Medicine 12/20/14
--- OUTSIDE RECORDS SUMMARY | 2025-01-01 13:56 | XMS_ITS | Patient Health Record ---
Author Organization [facility] Address [address] [place], [place] [id number] Care Team Providers Care Set Decorator Name Role Phone [facility] are Provider [phone] ACOSTA SIERRA Unavailable [phone] YFN PADILLA Unavailable [phone] ELKIN DOMÍNGUEZ Unavailable Unavailable Allergies Allergen (clinical drug ingredient) Drug/Non Drug Allergy documented on EMR Reaction Allergy Type Onset Date Status Substance with penicillin structure and antibacterial mechanism of action (substance) Penicillins (uncoded) Unknown Allergy Active azithromycin Azithromycin Unknown Drug Allergy A ctive Results Component Value Reference Range Notes Thyroid Panel With TSH Reviewed date:08/01/2024 12:41:26 PM Interpretation: Performing Lab:[facility] [place], Phone - [phone], Director - David Notes/Report: TSH 2.930 0.450-4.500 uIU/mL Thyroxine (T4) 5.9 4.5-12.0 ug/dL T3 Uptake 27 24-39 % Free Thyroxine Index 1.6 1.2-4.9 CMP (Comprehensive Metabolic panel) Reviewed date:08/01/2024 12:41:26 PM Interpretation: Performing Lab:[facility] [place], [facility], Phone - [phone], Director - David Notes/Report: Glucose 107 70-99 [...] 0-40 IU/L ALT (SGPT) 16 0-44 IU/L Hemoglobin A1c Reviewed date:08/01/2024 12:41:26 PM Interpretation: Performing Lab:[facility] [place] [address] [place] [address], Phone - [phone], Director - David Notes/Report: Hemoglobin A1c 5.6 4.8-5.6 % Diabetes: >6.4 . Prediabetes: 5.7 - 6.4 Glycemic control for adults with diabetes: <7.0 CBC With Differential/Platel et Reviewed date:08/01/2024 12:41:26 PM Interpretation: Performing Lab:[facility] [place], [address] [place] [address], Phone - [phone], Director - David Notes/Report: WBC 6.4 3.4-10.8 [...] % Immature Grans (Abs) 0.0 0.0-0.1 x10E3/uL Microalbumin/Creatinine Lignum om Urine Reviewed date:08/01/2024 12:41:26 PM Interpretation: Performing Lab:[facility] [place], [facility], Phone - [phone], Director - David Notes/Report: Creatinine, Urine 111.7 Not Estab. mg/dL Albumin, Urine <3.0 Not Estab. ug/mL Alb/Creat Ratio <3 0-29 mg/g creat Severely increased: >300 Normal: 0 - 29 Moderately increased: 30 - 300 Lipid Panel Reviewed date:08/01/2024 12:41:26 PM Interpretation: Performing Lab:[facility] [place], [facility], Phone - [phone], Director - David Notes/Report: Cholesterol, Total 163 100-199 mg/dL Triglycerides 106 0-149 mg/dL HDL Cholesterol 64 >39 mg/dL VLDL Cholesterol Denys 19 5-40 mg/dL LDL Chol Calc (NIH) 80 0-99 mg/dL Reason For Referral Reason Abdomen Ultrasound: Emphasis on Right Hemiabdomen. Diagnosis 1 Generalized abdomina l pain (R10.84) Referring Provider First Name ELKIN Referring Provider Last Name CATRACHITA [facility] actice Referred Provider Specialty Radiology General Notes REFERRAL, REVIEW 03:21:54 PM >chk under DI. Referral Priority Routine Reason Essential tremor Diagnosis 1 Essential tremor (G2 5.0) Referral Organization [facility] Referring Provider First Name ACOSTA Referring Provider Last Name SIERRA Referring Provider Speciality Internal edicine Referred Provider Specialty Neurology General Notes Sangeetha Umana 2024 03:41:44 PM >Please schedule with Josefina Hope Brandy 08/06/2024 03:53:26 PM >PT HAS APPT 4.21.25 Referral Priority Routine Reason tremors Diagnosis 1 Essential tremor (G2 5.0) Referral Organization [facility] Referring Provider First Name ACOSTA Referring Provider Last Name RIGO Referring Provider Speciality Internal M edicine Referred Provider JOSE RAFAEL VALENZUELA Referred Provider Specialty Neurology General Notes MED, [employer] 08/23/2024 03:21:28 PM >per te, clinical sent to dr hussain valenzuela, p# , f#[phone] , [facility] Referral Priority Routine Medications Medication [...] W/U Status Risk Notes Problem Mixed hyperlipidemia (945478261) Mixed hyperlipidemia (E78.2) Active confirmed Problem Moderate recurrent major depression (41100336) Major depressive disorder, recurrent, moderate (F33.1) Active confirmed Problem Recurrent major depression in full remission (78448112) Major depressive disorder, recurrent, in full remission (F33.42) Active confirmed Problem Essential tremor (767011893) Essential tremor (G25.0) Active confirmed Problem Polyneuropathy (23746989) 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) Active confirmed secondary to IFG, Glucose 109 as of 07/04/2023 Problem Problem, abnormal examination (92937537) Encounter for general adult medical examination with abnormal findings (Z00.01) Active confirmed Problem Pulmonary hypertension (56054140) Pulmonary hypertension, unspecified (I27.20) Active confirmed Problem Anxiety (15674018) Anxiety (F41.9) Active confi rmed Problem Gastroesophageal reflux disease without esophagitis (289337072) Gastroesophageal reflux disease without esophagitis (K21.9) Active confirmed Problem Gastroesophageal reflux disease (488107514) GERD without esophagitis (K21.9) Active confirmed Problem History of excision of intestinal structure (321365257) S/P cholecystectomy (Z90.49) Active confirmed Problem Acquired hypertrophic pyloric stenosis (69184240) Gastric outlet obstruction (K31.1) Active confirmed Problem Moderate recurrent major depression (21319444) MDD (major depressive disorder), recurrent episode, moderate (F33.1) Active confirmed Problem Bradycardia (09178968) Chronic sinus bradycardia (R00.1) Active confirmed Problem Mild recurrent major depression (84931219) Major depressive disorder, recurrent, mild (F33.0) 2014 Active confirmed [id number] - Problem Male erectile disorder (517605409) Male erectile disorder (F52.21) 2014 Active confirmed [id number] - Problem Atherosclerosis of aorta (36645080) Atherosclerosis of aorta (I70.0) 2015 Active confirmed CXR done on 05/15/2023 per DC pg 23 Problem History of malignant neoplasm of prostate (859879965) Personal history of malignant neoplasm of prostate (Z85.46) 2014 Active confirmed [id number] - Problem Cataract (627272645) Unspecified cataract (H26.9) 2014 Problem resolved confirmed [id number] - Problem Low back pain (267905541) Low back pain (M54.5) 2015 Problem resolved confirmed [id number] - Problem Calculus of kidney (96489366) Calculus of kidney (N20.0) 2015 Problem resolved confirmed [id number] - Problem Urolithiasis (disorder) (41961231) Urinary calculus, unspecified (N20.9) 2015 Problem resolved confirmed [id number] - Problem Urinary tract infectious disease (disorder) (42300884) Urinary tract infection, site not specified (N39.0) 2015 Problem resolved confirmed [id number] - Problem Adult health examination (536682748) Encounter for general adult medical examination without abnormal findings (Z00.00) 2016 Problem resolved confirmed [id number] - Problem BMI less than 20 (548553987) Body mass index (BMI) 19 or less, adult (Z68.1) 2014 Problem resolved confirmed [id number] - Problem Normal body mass index (44016283) Body mass index (BMI) 24.0-24.9, adult (Z68.24) 2015 Problem resolved confirmed [id number] - Problem Body mass index 25-29 - overweight (245445124) Body mass index (BMI) 28.0-28.9, adult (Z68.28) 2016 Problem resolved confirmed [id number] - Vital Signs Heart Rate 57 /min 08/06/2024 Blood pressure diastolic 42 mm Hg 08/06/2024 Oximetry 97 % 08/06/2024 Height 67 in 08/06/2024 Blood pressure systolic 117 mm Hg 08/06/2024 Weight 145 lbs 08/06/2024 BMI 22.71 kg/m2 08/06/2024 Encounters Encounter Location Date Provider Diagnosis [address] [phone] 03/16/2024 [facility] discharge follow-up Z09 ; Pulmonary hypertension, unspecified [...] prostate Z85.46 and Generalized abdominal pain R10.84 [facility] [address] [place] [address] [place], [place] [phone] 06/20/2024 ACOSTA SIERRA Encounter for genera l adult medical examination without abnormal findings Z00.00 ; Pulmonary hypertension, unspecified I27.20 ; MDD (major depressive disorder), recurrent episode, moderate F33.1 ; 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 classified elsewhere G63 ; [facility] [place] [facility] drug therapy Z79.899 ; Mixed hyperlipidemia E78.2 ; Essential tremor G25.0 ; Gastroesophageal reflux disease without esophagitis K21.9 and BMI 23.0-23.9, adult Z68.23 [facility] [address] [place], [place] [id number] 07/30/2024 ACOSTA SIERRA Mixed hyperlipidemia E78.2 ; [facility] [place] [facility] drug therapy Z79.899 ; Atherosclerosis of aorta I70.0 ; Calculus of kidney N20.0 and IFG (impaired fasting glucose) R73.01 [facility] [address] [id number] 08/06/2024 ACOSTA SIERRA MDD (major depressiv e disorder), recurrent episode, moderate F33.1 ; Pulmonary hypertension, unspecified I27.20 ; Other intermodal truck driver (current) drug therapy Z79.899 ; Essential tremor G25.0 ; Encounter for screening for other disorder Z13.89 and BMI 22.0-22.9, adult Z68.[address], [place] [id number] 03/10/[address], [place] [id number] 03/11/[address], [place] [id number] 03/11/[address], [place] [id number] 08/21/[address], [place] [id number] 03/10/2024 ACOSTA SIERRA [address], [place] [id number] 03/12/[address], [place] [id number] 03/21/2024 ELKINJANIS DOMÍNGUEZ [address], [place] [id number] 03/27/2024 ELKIN DOMÍNGUEZ [facility] [address] [id number] 06/05/2024 ACOSTA SIERRA Assessments Encounter Date Diagnosis [...] continue current medications. I will monitor ECHO. 07/30/2024 Mixed hyperlipidemia (ICD-10 - E78.2) 08/06/2024 Pulmonary hypertension, unspecified (ICD-10 - I27.20) Patient advised to continue current medications. I will monitor ECHO. 08/06/2024 MDD (major depressive disorder), recurrent episode, moderate (ICD-10 - F33.1) Patient advised to continue applicable medication regimen, exercise regularly and avoid substance abuse. 08/06/2024 [facility] [place] [facility] [place] drug therapy (ICD-10 - Z79.899) Labs placed 06/20/2024 MDD (major depressive disorder), recurrent episode, moderate (ICD-10 - F33.1) Patient advised to continue applicable medication regimen, exercise regularly and avoid substance abuse. 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 08/06/2024 Essential tremor (ICD-10 - G25.0) Patient has been explained possible etiologies for tremors. She was explained about beta blockers being helpful for this issue. 07/30/2024 Atherosclerosis of aorta (ICD-10 - I70.0) 06/20/2024 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 classified elsewhere (ICD-10 - G63) Patient advised to continue current medications as prescribed, check glucose daily, follow a low cholesterol diet, continue daily foot exams and have annual eye exams. 06/20/2024 [place] [facility] [place] drug therapy (ICD-10 - Z79.899) Continue current regimen 07/30/2024 Calculus of kidney (ICD-10 - N20.0) 08/06/2024 Encounter for screening for other disorder (ICD-10 - Z13.89) 03/16/2024 Atherosclerosis of aorta (ICD-10 - I70.0) [...] exercise program and encouraged meeting Support Groups. 07/30/2024 IFG (impaired fasting glucose) (ICD-10 - R73.01) 06/20/2024 Mixed hyperlipidemia (ICD-10 - E78.2) Patient has been instructed to follow a low fat diet, avoid fried foods. Exercise daily as tolerated and monitor weight. Consider [employer] evaluation if control of Cholesterol LDL and triglycerides levels are difficult to control. Monitor for medication side effects (if taking any). Follow labs report. 08/06/2024 BMI 22.0-22.9, adult (ICD-10 - Z68.22) Pt advised to increase calorie and protein intake 06/20/2024 Essential tremor (ICD-10 - G25.0) Patient has been explained possible etiologies for tremors. She was explained about beta blockers being helpful for this issue. 03/16/2024 Gastroesophageal reflux disease without esophagitis (ICD-10 - K21.9) 06/20/2024 Gastroesophageal reflux disease without esophagitis (ICD-10 - K21.9) Patient advised to continue use of antacids. Advised to avoid spicy/citrus foods. Report issues of nausea, vomiting and issues when swallowing. 03/16/2024 Anxiety (ICD-10 - F41.9) According to his recent severe acute anxiety exacerbation, He received explanation additionally to medication prescribed at ER where he attended some days ago, with an acceptable response. He was encouraged adhering to medication and coiunselling. 03/16/2024 Essential tremor (ICD-10 - G25.0) 06/20/2024 BMI 23.0-23.9, adult (ICD-10 - Z68.23) RECOMMENDATIONS given include: I have advised continue to maintain healthy diet and exercise regimen. 03/16/2024 History of prostate cancer (ICD-10 - Z85.46) 03/16/2024 Personal history of malignant neoplasm of prostate (ICD-10 - Z85.46) [id number]- Currently asymptomatic and periodically attending to Oncologist: [...] 1 09:20:00 AM, [address] , [facility] [place] [address], [place], [phone], Insurance Providers Payer Name Payer Address Payer Phone Subscriber Number Group Number Insured Name Patient Relationship to Insured Coverage Start Date Coverage End Date [employer] [address] [address] [place], [place] [id number] RONALD NICHOLS Self - patient is the insured 3 Medical (General) History Medical History History ICD Code Kidney disease MDD Hospitalization History Reason Date(Month/Year) Nausea/Vomiting/Hematemesis 08/10/2020
== END 2025-01-01 13:26 | disposition home or self-care (01) ==
LOC: HO.HSM 13:08
PROVIDERS: PCP Internal Medicine; Visit Provider Psychiatry & Neurology Neurology
DX: G25.0 Essential tremor (principal)
CPT/HCPCS: 99214

== ENCOUNTER → 2025-01-01 13:07 | Outpatient (BNVA) | payer MEDICARE, SELFPAY | PROVIDERS: PCP Internal Medicine; Visit Provider Psychiatry & Neurology Neurology | DX: G25.0 Essential tremor (principal) | CPT/HCPCS: 99212 ==

== ENCOUNTER 2025-01-14 10:11 | Outpatient (REF) | payer MEDICARE, SELFPAY ==
--- NOTE | ~2025-01-14 | US_ITS ---
CLINICAL HISTORY: N20.0 - Calculus of kidney US renal Comparison: 05/25/2024 Findings: Right kidney 11.1 cm length. Multiple nonobstructing stones noted. Multiple simple cysts are also noted. Left kidney 10.6 cm length. 2.0 cm upper pole simple cyst. No bilateral hydronephrosis. Normal bilateral renal echogenicity. Impression: Nonobstructing right renal stones This document has been electronically signed by: Gopi Varela MD on 01/14/2025 19:22:45
--- OUTSIDE RECORDS SUMMARY | 2025-01-14 11:17 | XMS_ITS | Patient Health Record ---
Author Organization [facility] Address [address], [place] [id number] Care Team Providers Care Safety Tech Name Role Phone [facility] are Provider [phone] ACOSTA SIERRA Unavailable [phone] YFN PADILLA Unavailable [phone] ELKIN DOMÍNGUEZ Unavailable Unavailable Allergies Allergen (clinical drug ingredient) Drug/Non Drug Allergy documented on EMR Reaction Allergy Type Onset Date Status Substance with penicillin structure and antibacterial mechanism of action (substance) Penicillins (uncoded) Unknown Allergy Active azithromycin Azithromycin Unknown Drug Allergy A ctive Results Component Value Reference Range Notes Thyroid Panel With TSH Reviewed date:08/01/2024 12:41:26 PM Interpretation: Performing Lab:[facility], [facility], Phone - [phone], Director - David Notes/Report: TSH 2.930 0.450-4.500 uIU/mL Thyroxine (T4) 5.9 4.5-12.0 ug/dL T3 Uptake 27 24-39 % Free Thyroxine Index 1.6 1.2-4.9 CMP (Comprehensive Metabolic panel) Reviewed date:08/01/2024 12:41:26 PM Interpretation: Performing Lab:[facility], [facility], Phone - [phone], Director - David Notes/Report: Glucose 107 70-99 [...] A1c Reviewed date:08/01/2024 12:41:26 PM Interpretation: Performing Lab:[facility] [address] [place] [address], Phone - [phone], Director - David Notes/Report: Hemoglobin A1c 5.6 4.8-5.6 % Diabetes: >6.4 . Prediabetes: 5.7 - 6.4 Glycemic control for adults with diabetes: <7.0 CBC With Differential/Platel et Reviewed date:08/01/2024 12:41:26 PM Interpretation: Performing Lab:[facility], [address] [place] [address], Phone - [phone], Director - David Notes/Report: WBC 6.4 3.4-10.8 [...] Immature Grans (Abs) 0.0 0.0-0.1 x10E3/uL Microalbumin/Creatinine [place] om Urine Reviewed date:08/01/2024 12:41:26 PM Interpretation: Performing Lab:[facility], [facility], Phone - [phone], Director - David Notes/Report: Creatinine, Urine 111.7 Not Estab. mg/dL Albumin, Urine <3.0 Not Estab. ug/mL Alb/Creat Ratio <3 0-29 mg/g creat Severely increased: >300 Normal: 0 - 29 Moderately increased: 30 - 300 Lipid Panel Reviewed date:08/01/2024 12:41:26 PM Interpretation: Performing Lab:[facility], [facility], Phone - [phone], Director - David Notes/Report: Cholesterol, Total 163 100-199 mg/dL Triglycerides 106 0-149 mg/dL HDL Cholesterol 64 >39 mg/dL VLDL Cholesterol Denys 19 5-40 mg/dL LDL Chol Calc (NIH) 80 0-99 mg/dL Reason For Referral Reason Abdomen Ultrasound: Emphasis on Right Hemiabdomen. Diagnosis 1 Generalized abdomina l pain (R10.84) Referring Provider First Name ELKIN Referring Provider Last Name CATRACHITA [facility] Referred Provider Specialty Radiology General Notes REFERRAL, REVIEW 03:21:54 PM >chk under DI. Referral Priority Routine Reason Essential tremor Diagnosis 1 Essential tremor (G2 5.0) Referral Organization [facility] Referring Provider First Name ACOSTA Referring Provider Last Name SIERRA Referring Provider Speciality Internal edicine Referred Provider Specialty Neurology General Notes Sangeetha Umana 2024 03:41:44 PM >Please schedule with Josefina Hope Brandy 08/06/2024 03:53:26 PM >PT HAS APPT 4.21.25 Referral Priority Routine Reason tremors Diagnosis 1 Essential tremor (G2 5.0) Referral Organization [facility] Referring Provider First Name ACOSTA Referring Provider Last Name RIGO Referring Provider Speciality Internal M edicine Referred Provider JOSE RAFAEL VALENZULEA Referred Provider Specialty Neurology General Notes MED, eleni 08/23/2024 03:21:28 PM >per te, clinical sent to dr hussain valenzuela, p# , f#[phone] , [facility] Referral Priority Routine Medications Medication SIG (Take, [...] W/U Status Risk Notes Problem Mixed hyperlipidemia (966090821) Mixed hyperlipidemia (E78.2) Active confirmed Problem Moderate recurrent major depression (69356736) Major depressive disorder, recurrent, moderate (F33.1) Active confirmed Problem Recurrent major depression in full remission (47992469) Major depressive disorder, recurrent, in full remission (F33.42) Active confirmed Problem Essential tremor (572235229) Essential tremor (G25.0) Active confirmed Problem Polyneuropathy (07437594) 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) Active confirmed secondary to IFG, Glucose 109 as of 07/04/2023 Problem Problem, abnormal examination (33870398) Encounter for general adult medical examination with abnormal findings (Z00.01) Active confirmed Problem Pulmonary hypertension (17937574) Pulmonary hypertension, unspecified (I27.20) Active confirmed Problem Anxiety (62000568) Anxiety (F41.9) Active confi rmed Problem Gastroesophageal reflux disease without esophagitis (003814821) Gastroesophageal reflux disease without esophagitis (K21.9) Active confirmed Problem Gastroesophageal reflux disease (116256052) GERD without esophagitis (K21.9) Active confirmed Problem History of excision of intestinal structure (247136334) S/P cholecystectomy (Z90.49) Active confirmed Problem Acquired hypertrophic pyloric stenosis (88153862) Gastric outlet obstruction (K31.1) Active confirmed Problem Moderate recurrent major depression (48400679) MDD (major depressive disorder), recurrent episode, moderate (F33.1) Active confirmed Problem Bradycardia (50929824) Chronic sinus bradycardia (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.1) Active confirmed Problem Mild recurrent major depression (29437329) Major depressive disorder, recurrent, mild (F33.0) 2014 Active confirmed [id number] - Problem Male erectile disorder (996558849) Male erectile disorder (F52.21) 2014 Active confirmed [id number] - Problem Atherosclerosis of aorta (46053906) Atherosclerosis of aorta (I70.0) 2015 Active confirmed CXR done on 05/15/2023 per DC pg 23 Problem History of malignant neoplasm of prostate (990574767) Personal history of malignant neoplasm of prostate (Z85.46) 2014 Active confirmed [id number] - Problem Cataract (280478953) Unspecified cataract (H26.9) 2014 Problem resolved confirmed [id number] - Problem Low back pain (130667604) Low back pain (M54.5) 2015 Problem resolved confirmed [id number] - Problem Calculus of kidney (44663731) Calculus of kidney (N20.0) 2015 Problem resolved confirmed [id number] - Problem Urolithiasis (disorder) (06419562) Urinary calculus, unspecified (N20.9) 2015 Problem resolved confirmed [id number] - Problem Urinary tract infectious disease (disorder) (92920731) Urinary tract infection, site not specified (N39.0) 2015 Problem resolved confirmed [id number] - Problem Adult health examination (269036708) Encounter for general adult medical examination without abnormal findings (Z00.00) 2016 Problem resolved confirmed [id number] - Problem BMI less than 20 (754747716) Body mass index (BMI) 19 or less, adult (Z68.1) 2014 Problem resolved confirmed [id number] - Problem Normal body mass index (12243499) Body mass index (BMI) 24.0-24.9, adult (Z68.24) 2015 Problem resolved confirmed [id number] - Problem Body mass index 25-29 - overweight (837034830) Body mass index (BMI) 28.0-28.9, adult (Z68.28) 2016 Problem resolved confirmed [id number] - Vital Signs Heart Rate 57 /min 08/06/2024 Oximetry 97 % 08/06/2024 Blood pressure diastolic 42 mm Hg 08/06/2024 Height 67 in 08/06/2024 Blood pressure systolic 117 mm Hg 08/06/2024 Weight 145 lbs 08/06/2024 BMI 22.71 kg/m2 08/06/2024 Encounters Encounter Location Date Provider Diagnosis [address] [address] 03/16/2024 [facility] discharge follow-up Z09 ; Pulmonary hypertension, unspecified [...] prostate Z85.46 and Generalized abdominal pain R10.84 [facility] [address] [place], [place] [id number] 06/20/2024 ACOSTA SIERRA Encounter for genera l adult medical examination without abnormal findings Z00.00 ; Pulmonary hypertension, unspecified I27.20 ; MDD (major depressive disorder), recurrent episode, moderate F33.1 ; 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 classified elsewhere G63 ; Other chcf (current) drug therapy Z79.899 ; Mixed hyperlipidemia E78.2 ; Essential tremor G25.0 ; Gastroesophageal reflux disease without esophagitis K21.9 and BMI 23.0-23.9, adult Z68.23 [facility] [address] [place], [place] [id number] 07/30/2024 ACOSTA SIERRA Mixed hyperlipidemia E78.2 ; Other chcf (current) drug therapy Z79.899 ; Atherosclerosis of aorta I70.0 ; Calculus of kidney N20.0 and IFG (impaired fasting glucose) R73.01 [facility] [address] [id number] 08/06/2024 ACOSTA SIERRA MDD (major depressiv e disorder), recurrent episode, moderate F33.1 ; Pulmonary hypertension, unspecified I27.20 ; Other manager long term care (current) drug therapy Z79.899 ; Essential tremor G25.0 ; Encounter for screening for other disorder Z13.89 and BMI 22.0-22.9, adult Z68.[address], [place] [id number] 03/10/[address], [place] [id number] 03/11/[address], [place] [id number] 03/11/[address], [place] [id number] 08/21/[address], [place] [id number] 03/10/2024 ACOSTA SIERRA [address], [place] [id number] 03/12/[address], [place] [id number] 03/21/2024 ELKINJANIS DOMÍNGUEZ [address], [place] [id number] 03/27/2024 ELKIN DOMÍNGUEZ [facility] [address] [id number] 06/05/2024 ACOSTA SIERRA Assessments Encounter Date Diagnosis [...] regularly and avoid substance abuse. 08/06/2024 Other chcf (current) drug therapy (ICD-10 - Z79.899) Labs placed 06/20/2024 MDD (major depressive disorder), recurrent episode, moderate (ICD-10 - F33.1) Patient advised to continue applicable medication regimen, exercise regularly and avoid substance abuse. 07/30/2024 Other manager long term care (current) drug therapy (ICD-10 - Z79.899) 03/16/2024 [...] and have annual eye exams. 06/20/2024 Other chcf (current) drug therapy (ICD-10 - Z79.899) Continue [...] daily as tolerated and monitor weight. Consider Removable Prosthodontist evaluation if control of Cholesterol LDL and [...] malignant neoplasm of prostate (ICD-10 - Z85.46) [id number]- Currently asymptomatic and periodically attending to Oncologist: [...] 1 09:20:00 AM, [address] , [facility] [address], [place], [phone], Insurance Providers Payer Name Payer Address Payer Phone Subscriber Number Group Number Insured Name Patient Relationship to Insured Coverage Start Date Coverage End Date [employer] [address] [address] [place], [place] [id number] [phone] [id number] RONALD NICHOLS Self - patient is the insured 3 Medical (General) History Medical History History ICD Code Kidney disease MDD Hospitalization History Reason Date(Month/Year) Nausea/Vomiting/Hematemesis 08/10/2020
--- OUTSIDE RECORDS SUMMARY | 2025-01-14 11:17 | XMS_ITS | Clinical Summary ---
Author Organization [facility] [address] [place] [address] Address [address] [facility] [place] [address] Phone Care Team Providers Care Manager Respiratory Care Name Role Phone Mikhail Espana MD Primary Care Provider [phone] Allergies Active Allergy Reactions Criticality Noted Date [...] he has surveillance echocardiograms performed by his wheel installer in [place]. Allergic rhinitis 02/16/2018 Basal cell carcinoma of skin 02/16/2018 Depression 02/16/2018 Hematuria 02/16/2018 Hyperlipidemia 02/16/2018 Overview (03/08/2024): Last Assessment & Plan: Continues on his current dose of pravastatin 10 mg. His lipid panel is managed by his PCP/wheel installer in [place]. He informs that he has recently had [...] 1:15 PM EDT Office Visit Adult Medicine [address] [address] Mikhail Espana MD Pure hypercholesterolemia (Primary Dx); [...] 10:00 AM EDT Office Visit Adult Medicine [facility] [address] [place] [phone] Geetha Boone PA [address] [place] [address] Health Maintenance Due Date Last Done Comments [...] LAB CHEMISTRY METHOD 10/26/2024 5:59 PM EDT [facility] PSA, Complexed <0.07 0.00 - 3.00 ng/mL LAB CHEMISTRY METHOD 10/26/2024 5:59 PM EDT [facility] PSA, Free LAB CHEMISTRY METHOD 10/26/2024 5:59 PM EDT [facility] PSA, Free Pct LAB CHEMISTRY METHOD 10/26/2024 5:59 PM EDT [facility] Blood Venous blood specimen / Unknown Venipuncture / Unknown 10/26/2024 1:45 PM EDT 10/26/2024 1:45 PM EDT Narrative [facility] - 10/26/2024 5:59 PM EDT [...] ORDERABLES Final Resu lt Performing Organization Address [facility]/ZIP Co de Phone Number [facility] [address] [place] [address], [place] [phone] * Lipid panel with reflex to direct LDL (10/26/2024 1:45 PM EDT) Cholesterol 160 0 - 200 mg/dL LAB CHEMISTRY METHOD 10/26/2024 4:55 PM EDT [facility] Triglycerides 76 0 - 150 mg/dL LAB CHEMISTRY METHOD 10/26/2024 4:55 PM EDT [facility] HDL 73 >=40 mg/dL LAB CHEMISTRY METHOD 10/26/2024 4:55 PM EDT [facility] LDL Calculated 72 0 - 100 mg/dL LAB CHEMISTRY METHOD 10/26/2024 4:55 PM EDT [facility] VLDL Cholesterol Denys 15.2 mg/dL LAB CHEMISTRY METHOD 10/26/2024 4:55 PM EDT [facility] Non HDL Chol. (LDL+VLDL) 87 <145 mg/dL LAB CHEMISTRY METHOD 10/26/2024 4:55 PM EDT [facility] Chol/HDL Ratio 2.2 0.0 - 4.4 LAB CHEMISTRY METHOD 10/26/2024 4:55 PM EDT [facility] Blood Venous blood specimen / Unknown Venipuncture / Unknown 10/26/2024 1:45 PM EDT 10/26/2024 1:45 PM EDT us Mikhail Espnaa MD LAB BLOOD ORDERABLES Final Resu lt Performing Organization Address [facility]/ZIP Co de Phone Number [facility] [address] [place] [address], [place] [phone] * (ABNORMAL) Comprehensive metabolic panel (10/26/2024 1:45 PM EDT) Sodium 143 133 - 145 mmol/L LAB CHEMISTRY METHOD 10/26/2024 4:[address] [facility] Potassium 3.9 3.5 - 5.5 mmol/L LAB CHEMISTRY METHOD 10/26/2024 4:[address] [facility] Chloride 109 96 - 110 mmol/L LAB CHEMISTRY METHOD 10/26/2024 4:[address] [facility] CO2 29 21 - 32 mmol/L LAB CHEMISTRY METHOD 10/26/2024 4:[address] [facility] Anion Gap 5 3 - 11 LAB CHEMISTRY METHOD 10/26/2024 4:[address] [facility] Glucose 116(H) 70 - 100 mg/dL LAB CHEMISTRY METHOD 10/26/2024 4:[address] [facility] BUN 15 5 - 25 mg/dL LAB CHEMISTRY METHOD 10/26/2024 4:[address] [facility] Creatinine 0.97 0.70 - 1.30 mg/dL LAB CHEMISTRY METHOD 10/26/2024 4:[address] [facility] eGFR 79 >=60 mL/min/1. 73m2 LAB CHEMISTRY METHOD 10/26/2024 4:[address] [facility] Comment:Calculation based on the Chronic Kidney Disease Epidemiology Collaboration (CKD-EPI) equation refit without adjustment for race. BUN/Creatinine Ratio 15.5 LAB CHEMISTRY METHOD 10/26/2024 4:[address] [facility] Calcium 8.5 8.5 - 10.5 mg/dL LAB CHEMISTRY METHOD 10/26/2024 4:[address] [facility] AST (SGOT) 19 10 - 42 unit/L LAB CHEMISTRY METHOD 10/26/2024 4:55 PM EDT [facility] ALT (SGPT) 21 10 - 60 unit/L LAB CHEMISTRY METHOD 10/26/2024 4:55 PM EDT [facility] Alkaline Phosphatase 128(H) 42 - 121 unit/L LAB CHEMISTRY METHOD 10/26/2024 4:55 PM EDT [facility] Total Protein 6.3 6.0 - 8.0 g/dL LAB CHEMISTRY METHOD 10/26/2024 4:55 PM EDT [facility] Albumin 3.5 3.2 - 5.0 g/dL LAB CHEMISTRY METHOD 10/26/2024 4:55 PM EDT [facility] Total Bilirubin 0.6 0.0 - 1.4 mg/dL LAB CHEMISTRY METHOD 10/26/2024 4:55 PM EDT [facility] Blood Venous blood specimen / Unknown Venipuncture / Unknown 10/26/2024 1:45 PM EDT 10/26/2024 1:45 PM EDT us Mikhail Espana MD LAB BLOOD ORDERABLES Final Resu lt [facility] [address] [place] [address], from Last 3 Months Insurance [facility] MEDICARE ADVANTAGE on file Care Teams Manager Respiratory Care Relationship Specialty Start Date End Date Mikhail Espana MD PCP - General Internal Medicine 12/20/14
== END 2025-01-14 10:12 | disposition home or self-care (01) ==
LOC: HO.HMGCX 10:11
PROVIDERS: PCP Internal Medicine; Visit Provider Urology
DX: N20.0 Calculus of kidney (principal)
CPT/HCPCS: 76775

== ENCOUNTER → 2025-01-14 10:15 | Outpatient (BNV) | payer MEDICARE, SELFPAY | PROVIDERS: PCP Internal Medicine; Visit Provider Radiology Diagnostic Radiology | DX: N20.0 Calculus of kidney (principal) | CPT/HCPCS: 76775 ==

== ENCOUNTER 2025-03-26 13:32 | Outpatient (AMB) | payer MEDICARE, SELFPAY ==
--- OUTSIDE RECORDS SUMMARY | 2024-03-01 06:30 | XMS_ITS ---
Author Organization [facility] 1 Address [address] [address] Care Team Providers Care Golf Course Manager Name Role Phone MS. Lisa Srinivasan Unavailable [phone] REASON FOR VISIT Follow Up Encounters Encounter Location Date Provider Diagnosis [facility] [address] [address] 03/01/2024 Lisa Srinivasan Plan Of Treatment No Information Progress Notes * Remington NICHOLS RDOB: [birth year] (79 yo M)Acc No.[id number]:03/01/2024 Progress Notes Patient: Ezra Remington bradley Provider: Wallace Srinivasan MD PA :1945 A ge:78 Y S ex:Male Date:03/01/2024 Phone: [facility] Subjective: * Chief Complaints: * F ollow Up * Electronic signature of Soren Srinivasan M.D. on 03/26/2025 at 04:36 PM EST Sign off status: Pending * Provider: Wallace Srinivasan MD PA Date: Generated for Baltai og/Emily/eTransmitting on: 05/26/2024 04:36 PM EST
--- OUTSIDE RECORDS SUMMARY | 2024-03-09 14:20 | XMS_ITS ---
Author Organization [facility] Address [address], [place] [id number] Care Team Providers Care Grain Elevator Motor Starter Name Role Phone [facility] are Provider [phone] ACOSTA SIERRA Unavailable [phone] REASON FOR VISIT [phone] MEDICATION CONCERN Medications Medication SIG (Take, Route, Frequency, Duration) Notes Start Date End Date Status Cialis 20 MG 1 PO 30 MIN BEFORE SEXUAL ACTIVITY Oral; Duration: 30 05/19/2016 Not-Taking Pravastatin Sodium 10 MG TAKE 1 TABLET B Y MOUTH EVERY NIGHT AT BEDTIME; Duration: 90 Not-Taking Citalopram Hydrobromide 20 MG TAKE 1 TABLET BY MOUTH EVERY DAY; Duration: 90 Active Pantoprazole Sodium 40 MG 1 tablet Orall y twice a day; Duration: 90 days Active Propranolol HCl 20 MG 1 tablet Orally On ce a day; Duration: 90 days Active Encounters Encounter Location Date Provider Diagnosis [address] [address] 03/09/2024 ACOSTA SIERRA Plan Of Treatment Next Appt Details Provider Name:DICKSON CALDERA, 0 05/27/2025 09:40:00 AM, [address] , [facility] [address], [place], [id number], Progress Notes * RONALD NICHOLS RDOB: [birth year] (79 yo M)Acc No.[id number]:03/09/2024 Patient: RONALD VILLALTA Provider: Reynold SIERRA DO :1945 A ge:78 Y S ex:Male Date:03/09/2024 [facility] Pcp:Premier Lindy Amaya [facility] Subjective: * Chief Complaints: * 1 . [phone] MEDICATION CONCERN. * Medical History: * Medications: T aking Propranolol HCl 20 MG Tablet 1 tablet Orally Once a day , Taking Citalopram Hydrobromide 20 MG Tablet TAKE 1 TABLET BY MOUTH EVERY DAY , Taking Pantoprazole Sodium 40 MG Tablet Delayed Release 1 tablet Orally twice a day , Not-Taking Pravastatin Sodium 10 MG Tablet TAKE 1 TABLET BY MOUTH EVERY NIGHT AT BEDTIME , Not-Taking Cialis 20 MG Tablet 1 PO 30 MIN BEFORE SEXUAL ACTIVITY Oral Objective: * Vitals: Assessment: Plan: * Treatment: * Billing Information: * Visit Code: * Procedure Codes: * Electronic signature of VALORIE SIERRA DO on 03/26/2025 at 04:36 PM EST Sign off status: Pending * Provider: Reynold SIERRA DO Date: Generated for Letty foley/Emily/Anjaliitting on: 05/26/2024 04:36 PM EST
--- OUTSIDE RECORDS SUMMARY | 2024-03-10 06:30 | XMS_ITS ---
Author Organization [facility] Address [address] [address] Care Team Providers Care Home Sales Service Professional Name Role Phone MS. Lisa Srinivasan Unavailable [phone] REASON FOR VISIT Follow Up Encounters Encounter Location Date Provider Diagnosis [facility] [address] [address] 03/10/2024 Lisa Srinivasan Plan Of Treatment No Information Progress Notes * Remington NICHOLS RDOB: [birth year] (79 yo M)Acc No.[id number]:03/10/2024 Progress Notes Patient: Ezra Remington bradley Provider: Wallace Srinivaasn MD PA :1945 A ge:78 Y S ex:Male Date:03/10/2024 Phone: [facility] Subjective: * Chief Complaints: * F ollow Up * Electronic signature of Soren Srinivasan M.D. on 03/26/2025 at 04:35 PM EST Sign off status: Pending * Provider: Wallace Srinivasan MD PA Date: Generated for Baltai og/Emily/eTransmitting on: 05/26/2024 04:35 PM EST
--- OUTSIDE RECORDS SUMMARY | 2024-06-11 05:00 | XMS_ITS ---
Author Organization [facility] Address [address], [place] [id number] Care Team Providers Care Floriculturist Name Role Phone [facility] are Provider [phone] ACOSTA SIERRA [phone] REASON FOR VISIT ORDER 05.10.24 Encounters Encounter Location Date Provider Diagnosis [facility] [address] [place], [place] [id number] 06/11/2024 ACOSTA SIERRA Plan Of Treatment Next Appt Details Provider Name:DICKSON CALDERA, 0 05/27/2025 09:40:00 AM, [address], [address], [place], [place], [id number], Progress Notes * RONALD NICHOLS RDOB: [birth year] (79 yo M)Acc No.[id number]:06/11/2024 Patient: RONALD VILLALTA Provider: Reynold SIERRA DO :1945 A ge:79 Y S ex:Male Date:06/11/2024 Address:[address] [place] [id number] Pcp[facility] Subjective: * Chief Complaints: * 1 . ORDER 05.10.24. * Medical History: Objective: * Vitals: Assessment: Plan: * Treatment: * Billing Information: * Visit Code: * Procedure Codes: * Electronic signature of VALORIE SIERRA DO on 03/26/2025 at 04:35 PM EST Sign off status: Pending * Provider: Reynold SIERRA DO Date: 0 06/11/2024 Generated for Letty foley/Emily/Wendi on: 1 05/26/2024 04:35 PM EST
--- OUTSIDE RECORDS SUMMARY | 2024-09-10 03:30 | XMS_ITS ---
Author Organization [facility] Address [address] [place], [place] [id number] Care Team Providers Care Health Promotion Manager Name Role Phone [facility] are Provider [phone] ACOSTA SIERRA Unavailable [phone] YFN PADILLA [phone] Encounters Encounter Location Date Provider Diagnosis [facility] [address] [place], [place] [id number] 09/10/2024 YFN PADILLA Plan Of Treatment Next Appt Details Provider Name:DICKSON CALDERA, 0 05/27/2025 09:40:00 AM, [address] [facility] [address], [place], [id number], Progress Notes * RONALD NICHOLS RDOB: [birth year] (79 yo M)Acc No.[id number]:09/10/2024 Patient: RONALD VILLALTA Provider: Tish Padilla MD :1945 A ge:79 Y S ex:Male Date:09/10/2024 Address:[address] [place], [place] [id number] [facility] Subjective: * Chief Complaints: * * Medical History: Objective: * Vitals: Assessment: Plan: * Treatment: * Billing Information: * Visit Code: * Procedure Codes: * Electronic signature of KHAI PADILLA MD on 03/26/2025 at 04:36 PM EST Sign off status: Pending * Provider: Tish Padilla MD Date: 0 09/10/2024 Generated for Letty foley/Emily/Wendi on: 1 05/26/2024 04:36 PM EST
--- OUTSIDE RECORDS SUMMARY | 2025-03-09 04:00 | XMS_ITS ---
Author Organization [facility] Address [address] [place] [phone] Care Team Providers Care Paint Stockman Name Role Phone Migration, Provider Unavailable Unavailable REASON FOR VISIT EMR-Shaq Encounters Encounter Location Date Provider Diagnosis [facility] [address] [place] [address] 03/09/2025 Provider Migration Plan Of Treatment No Information Progress Notes * Remington NICHOLS RDOB: [birth year] (79 yo M)Acc No.[id number]:03/09/2025 Patient: Remington VILLALTA :1945 A ge:79 Y S ex:Male Phone: [place] [address] Subjective: * Chief Complaints: * E MR-Shaq * * Date:
--- OUTSIDE RECORDS SUMMARY | 2025-03-10 04:00 | XMS_ITS ---
Author Organization [facility] Address [address] [place] [phone] Care Team Providers Care Senior Web Architect Name Role Phone Migration, Provider Unavailable Unavailable REASON FOR VISIT EMR-[facility] Medications Medication SIG (Take, Route, Frequency, Duration) Notes Start Date End Date Status Pravastatin Sodium 10 MG Tablet once a day Oral 08/26/2020 Active Citalopram Hydrobromide 10 MG Tablet once a day Oral 08/26/2020 Active Propranolol HCl 40 MG Tablet once a day Oral 08/26/2020 Active Social History Social History Additional Details Category Social Info Options Details Migrated Social History Migrated Social History Gender Identity : Male , Sexual Orientation : Straight or heterosexual Encounters Encounter Location Date Provider Diagnosis [facility] [address] [place] [address] 03/10/2025 Provider Migration Plan Of Treatment No Information Progress Notes * Remington NICHOLS RDOB: [birth year] (79 yo M)Acc No.[id number]:03/10/2025 Patient: Ezra Remington ROMAN :1945 A ge:79 Y S ex:Male Phone: Address:[address] [place] [phone] Subjective: * Chief Complaints: * E MR-Shaq * Social History: M igrated Social History: M igrated Social History: Gender Identity : Male , Sexual Orientation : Straight or heterosexual. * Medications: T akingPravastatin Sodium 10 MG Tablet once a day Oral Citalopram Hydrobromide 10 MG Tablet once a day Oral Propranolol HCl 40 MG Tablet once a day Oral Taking Pravastatin Sodium 10 MG Tablet once a day Oral Taking Citalopram Hydrobromide 10 MG Tablet once a day Oral Taking Propranolol HCl 40 MG Tablet once a day Oral * * Date:
--- NOTE | 2025-03-26 13:40 | MHC.OFFVIS ---
Intake Visit Reasons: 6m/US/[facility] Intake Note: Patient is present for 6 mo follow up Urology Medication:TAMSULOSIN( not taking meds) Antibiotic Allergy:PENICILLINS,CIPROFLOXACIN Blood Thinner:NONE Labs done :Litho link 12/05/24 Imaging : Ultrasound 01/14/25 Aircraft Log Clerk Required: No Accompanied by: Spouse Allergies ciprofloxacin Allergy (Mild, Verified 03/26/25 13:44) Hypertension Penicillins Allergy (Mild, Verified 03/26/25 13:44) Hypertension HPI Comments Details: Remington is a pleasant male. He is a patient of Dr. Espana. He is seen for the following urologic conditions - prostate cancer - stress incontinence - nephrolithiasis Six-month follow-up Uro risk is complete Needs to drink 16-32 more oz per day From a pure solute perspective low calcium, low oxalate, low-sodium. But does have low citrate. Need to encourage use of lemon juice Imaging with small right stones consistent with prior Plan KUB six-month Prior stone composition - calcium oxalate monohydrate 45% Prior Uro risk showed low volume a 1000 cc in high oxalate 37 Nephrolithiasis Longstanding Multiple prior procedures Nothing in prior notes regarding Uro risk although patient states has been performed in the distant past Imaging - CT - right kidney 2 mm 4 mm calcification in the upper pole and 7 mm in the mid pole and 5 mm and 3 mm in the lower pole, left kidney 3 tiny 2 mm calcifications the upper pole - 07/17 renal ultrasound bilateral 4 mm stones Uro risk - 03/15 - low volume 1000 cc, high oxalate 37, borderline low citrate 435 - 12/14 - low volume a 1000 cc, oxalate under 30, citrate low, sodium low, encouraged lemon juice Intervention - 04/16 emergency room right ureteroscopy Composition - 04/16 Calcium Oxalate Dihydrate (Weddellite) 10%Calcium Oxalate Monohydrate (Whewellite) 45%Carbonate Apatite (Dahllite) 45% Prostate cancer Prior radical prostatectomy Well-controlled PSA Stress incontinence Prior male sling procedure with good success [facility] Medical History (Updated 12/04/24 @ 12:30 by Oliver Landeros MD) Lumbar radiculopathy Gallbladder calculus without cholecystitis and no obstruction Headache Tremor Nonrheumatic aortic (valve) insufficiency Left shoulder pain Nephrolithiasis Hematuria Basal cell carcinoma of skin Allergic rhinitis Anxiety Prostate cancer GERD (gastroesophageal reflux disease) Hyperlipidemia Ascending aorta dilatation Aortic valve insufficiency Depression Migraine 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 JANEY (stress urinary incontinence), male History of urinary frequency History of prostate cancer History of kidney stones Surgical History Hx laparoscopic cholecystectomy History of repair of hiatal hernia History of ureteroscopy History of surgery History of lithotripsy H/O radical prostatectomy History of cystoscopy Social History Are you a primary anesthesiologist and critical care to a significant other at home: No Do you presently have visiting nurse or other home services: No Patient Tobacco Use Status: Never used Tobacco Review of Systems Const Denies chills and Denies fever(s) Card Reports no additional complaints and Denies syncope Resp Denies cough GI Denies abdominal pain and Denies heartburn Reports as per HPI and Denies change in libido Neuro Denies syncope Psych Denies change in libido Endo Denies change in libido Physical Exam Const General: cooperative, healthy appearing, comfortable and no acute distress Orientation/consciousness: patient oriented x3 HEENT Face and sinus: Yes normal facial exam Mouth: moist mucous membranes Neck Neck: Yes normal visual inspection, Yes full ROM and Yes trachea midline Chest Chest palpation & inspection: normal inspection of the chest Resp Effort & Inspection: normal respiratory effort, able to speak in complete sentences and no respiratory distress GI Inspection: Yes normal to inspection Back/Spine/Pelvis Cervical Spine: normal cervical lordosis Thoracic/Lumbar Spine: thoracic and lumbar spine normal to inspection Skin General skin exam: no rashes or lesions noted Neuro General: patient oriented x3, gait normal, tone normal and moves all extremities Extrem General: Yes normal to inspection and Yes capillary refill normal Assessment & Plan Assessment & Plan (1) Nephrolithiasis: Comment: Recurrent calcium oxalate stone Code(s): N20.0 - Calculus of kidney Category: Medical Plan Follow-up 8 months KUB Orders: Orders XR KUB 8 Months N20.0 - Calculus of kidney Patient Instructions: This note is constructed using voice recognition software. While every effort has been made to ensure accuracy senior quality control inspector errors may have been included. Imaging studies, laboratory and physical exam results were discussed and reviewed in detail. No major barriers to patient understanding were identified. An opportunity to ask questions regarding the treatment plan was provided. All questions were answered. The patient expressed understanding and agreement with the above treatment plan. The patient is aware they should contact our office by phone for worsening of their current condition or the appearance of new urologic symptoms. Compliance is encouraged with any medications and followup testing that is ordered. It is a privilege to participate in the urologic care of your patient. If you have any questions or concerns regarding treatment for the above conditions, or other urologic issues, please do not hesitate to contact me. The office telephone contact is [phone]. Sincerely, Dr Julio Jeff MD, SULA[facility] - Urology Compassionate Specialist Care for the Genitourinary System Coding Level of Care Code Est Pt Level 3 (25382) Complex EM visit Add On G2211 Diagnoses Nephrolithiasis N20.0
--- OUTSIDE RECORDS SUMMARY | 2025-03-26 16:36 | XMS_ITS | Patient Health Record ---
Author Organization [facility] Address [address] [address] Care Team Providers Care Medical Office Assistant Instructor Name Role Phone Migration, Provider Unavailable Unavailable Reason For Referral No Information Medications Medication SIG (Take, Route, Frequency, Duration) [...] , Sexual Orientation : Straight or heterosexual Problems Problem Type SNOMED Code ICD Code Onset Dates Problem Status W/U Status Risk Notes Problem Essential hypertension (36051719) Essential (primary) hypertension (I10) 08/27/19 21 Active confirmed Problem Aortic valve disorder (2502643) Nonrheumatic aortic (valve) insufficiency (I35.1) 09/02/19 21 Active confirmed Problem Sick sinus syndrome (41574046) Sick sinus syndrome (I49.5) 08/27/19 21 Active confirmed Problem Preoperative cardiovascular examination (846111200) Encounter for preprocedural cardiovascular examination (Z01.810) 07/28/19 22 Active confirmed Problem Hyperlipidemia (26263234) Other hyperlipidemia (E78.49) 08/27/19 21 Active confirmed Encounters Encounter Location Date Provider Diagnosis [facility] [address] [address] 03/09/2025 Provider Migration [facility] [address] [place] [phone] 03/10/2025 Provider Migration Plan Of Treatment No Information Insurance Providers Payer Name Payer Address Payer Phone Subscriber Number Group Number Insured Name Patient Relationship to Insured Coverage Start Date Coverage End Date [place] [address] [address] [place] [address] [id number] Remington Carter Self - patient is the insured
--- OUTSIDE RECORDS SUMMARY | 2025-03-26 16:36 | XMS_ITS | Clinical Summary ---
Author Organization [facility] [address] [place] [address] Address [address] [facility] [place] [address] Phone Care Team Providers Care Windmill Technician Name Role Phone Mikhail Espana MD Primary Care Provider [phone] Allergies Active Allergy Reactions Criticality Noted Date [...] he has surveillance echocardiograms performed by his radio mechanic helper in [place]. Allergic rhinitis 02/16/2018 Basal cell carcinoma of skin 02/16/2018 Depression 02/16/2018 Hematuria 02/16/2018 Hyperlipidemia 02/16/2018 Overview (03/08/2024): Last Assessment & Plan: Continues on his current dose of pravastatin 10 mg. His lipid panel is managed by his PCP/radio mechanic helper in [place]. He informs that he has recently had [...] Encounters Date Type Department Care Team Description 01/30/2025 10:00 AM EDT Office Visit Adult Medicine [address] [address] Geetha Boone PA Hyperlipidemia, unspecified hyperlipidemia type (Primary Dx); Anxiety; Depression, unspecified depression type; Ascending aorta dilatation (CMS/HCC V24); Essential tremor from Last 3 Months Immunizations Immunization Administration Dates Next Due Influenza trivalent, 0.5mL [...] Sign Reading Time Taken Comments Blood Pressure 112/62 01/30/2025 9:43 AM EDT Pulse 92 01/30/2025 9:43 AM EDT Temperature 36.3 C (97.3 F) 01/30/2025 9:43 AM EDT Respiratory Rate 14 10/26/2024 1:02 PM EDT Oxygen Saturation 96% 01/30/2025 9:43 AM EDT Inhaled Oxygen Concentration - - Weight 68 kg (150 lb) 01/30/2025 9:43 AM EDT Height 167.6 cm (5' 5.98 ) 01/30/2025 9:43 AM ED T Body Mass Index 24.22 01/30/2025 9:43 AM EDT Plan of Treatment Upcoming Encounters Date Type Department Care Team (Late st Contact Info) Description 07/30/2025 11:00 AM EDT Office Visit Adult Medicine [facility] [address] [place] [phone] Geetha Boone PA [address] [place], [place] Health Maintenance Due Date Last Done Comments [...] Routine 10/26/2024 1:45 PM EDT Pure hypercholesterolemia from Last 3 Months or Most Recently Relevant to Health Maintenance Results * Lipid panel with reflex to direct LDL (10/26/2024 1:45 PM EDT) Cholesterol 160 0 - 200 mg/dL LAB CHEMISTRY METHOD 10/26/2024 4:55 PM EDT [facility] Triglycerides 76 0 - 150 mg/dL LAB CHEMISTRY METHOD 10/26/2024 4:55 PM EDT [facility] HDL 73 >=40 mg/dL LAB CHEMISTRY METHOD 10/26/2024 4:55 PM EDT [facility] LDL Calculated 72 0 - 100 mg/dL LAB CHEMISTRY METHOD 10/26/2024 4:55 PM [facility] VLDL Cholesterol Denys 15.2 mg/dL LAB CHEMISTRY METHOD 10/26/2024 4:55 PM EDT [facility] Non HDL Chol. (LDL+VLDL) 87 <145 mg/dL LAB CHEMISTRY METHOD 10/26/2024 4:55 PM EDT [facility] Chol/HDL Ratio 2.2 0.0 - 4.4 LAB CHEMISTRY METHOD 10/26/2024 4:55 PM [facility] Blood Venous blood specimen / Unknown Venipuncture / Unknown 10/26/2024 1:45 PM EDT 10/26/2024 1:45 PM EDT us Mikhail Espana MD LAB BLOOD ORDERABLES Final Resu lt [facility] [address] [place] [address], from Last 3 Months or Most Recently Relevant to Health Maintenance Insurance [facility] MEDICARE ADVANTAGE on file Care Teams Windmill Technician Relationship Specialty Start Date End Date Mikhail Espana MD [address] [place] [phone] PCP - General Internal Medicine 12/20/14
--- OUTSIDE RECORDS SUMMARY | 2025-03-26 16:37 | XMS_ITS | Patient Health Record ---
Author Organization [facility] Address [address] [place], [place] [id number] Care Team Providers Care Lap Runner Name Role Phone [facility] are Provider [phone] ACOSTA SIERRA Unavailable [phone] YFN PADILLA Unavailable [phone] ELKIN DOMÍNGUEZ Unavailable Unavailable Allergies Allergen (clinical drug ingredient) Drug/Non Drug Allergy documented on EMR Reaction Allergy Type Onset Date Status Substance with penicillin structure and antibacterial mechanism of action (substance) Penicillins (uncoded) Unknown Allergy Active azithromycin Azithromycin Unknown Drug Allergy A ctive Results Component Value Reference Range Notes Thyroid Panel With TSH Reviewed date:08/01/2024 12:41:26 PM Interpretation: Performing Lab:[facility] [place], [email or web address], Phone - [phone], Director - David Notes/Report: TSH 2.930 0.450-4.500 uIU/mL Thyroxine (T4) 5.9 4.5-12.0 ug/dL T3 Uptake 27 24-39 % Free Thyroxine Index 1.6 1.2-4.9 CMP (Comprehensive Metabolic panel) Reviewed date:08/01/2024 12:41:26 PM Interpretation: Performing Lab:[facility] [place], [email or web address], Phone - [phone], Director - David Notes/Report: Glucose 107 70-99 [...] A1c Reviewed date:08/01/2024 12:41:26 PM Interpretation: Performing Lab:[facility] [place] [address] [place] [address], Phone - [phone], Director - David Notes/Report: Hemoglobin A1c 5.6 4.8-5.6 % Diabetes: >6.4 . Prediabetes: 5.7 - 6.4 Glycemic control for adults with diabetes: <7.0 CBC With Differential/Platel et Reviewed date:08/01/2024 12:41:26 PM Interpretation: Performing Lab:[facility] [place], [address] [place] [address], Phone - [phone], Director - David Notes/Report: WBC 6.4 3.4-10.8 [...] Immature Grans (Abs) 0.0 0.0-0.1 x10E3/uL Microalbumin/Creatinine Roby om Urine Reviewed date:08/01/2024 12:41:26 PM Interpretation: Performing Lab:[facility] [place], [facility], Phone - [phone], Director - David Notes/Report: Creatinine, Urine 111.7 Not Estab. mg/dL Albumin, Urine <3.0 Not Estab. ug/mL Alb/Creat Ratio <3 0-29 mg/g creat Severely increased: >300 Normal: 0 - 29 Moderately increased: 30 - 300 Lipid Panel Reviewed date:08/01/2024 12:41:26 PM Interpretation: Performing Lab:[facility] [place], [address] [place] [address], Phone - [phone], Director - David Notes/Report: Cholesterol, Total 163 100-199 mg/dL Triglycerides 106 0-149 mg/dL HDL Cholesterol 64 >39 mg/dL VLDL Cholesterol Denys 19 5-40 mg/dL LDL Chol Calc (NIH) 80 0-99 mg/dL Reason For Referral Reason Essential tremor Diagnosis 1 Essential tremor (G2 5.0) Referral Organization [facility] Referring Provider First Name ACOSTA Referring Provider Last Name [facility] Referring Provider Speciality [facility] Referred Provider Specialty Neurology General Notes Sangeetha Umaan 2024 03:41:44 PM >Please schedule with Josefina Hope Brandy 08/06/2024 03:53:26 PM >PT HAS APPT 4.21.25 Referral Priority Routine Reason tremors Diagnosis 1 Essential tremor (G2 5.0) Referral Organization [facility] Referring Provider First Name ACOSTA Referring Provider Last Name [facility] Referring Provider Speciality [facility] Referred Provider JOSE RAFAEL VALENZUELA Referred Provider Specialty Neurology General Notes [employer], [employer] 08/23/2024 03:21:28 PM >per te, clinical sent to dr hussain valenzuela, p# , f#[phone] , [facility] Referral Priority Routine Medications Medication SIG (Take, Route, Frequency, Duration) Notes Start Date End Date Status rOPINIRole HCl 0.5 MG 1 tablet Orally On ce a day; Duration: 90 days 06/20/2024 Active Citalopram Hydrobromide 20 mg TAKE ONE TABLET BY MOUTH ONCE A DAY; Duration: 90 Active Pantoprazole Sodium 40 [...] W/U Status Risk Notes Problem Mixed hyperlipidemia (258918224) Mixed hyperlipidemia (E78.2) Active confirmed Problem Moderate recurrent major depression (22605852) Major depressive disorder, recurrent, moderate (F33.1) Active confirmed Problem Recurrent major depression in full remission (13379021) Major depressive disorder, recurrent, in full remission (F33.42) Active confirmed Problem Essential tremor (816782298) Essential tremor (G25.0) Active confirmed Problem Polyneuropathy (61118065) 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) Active confirmed secondary to IFG, Glucose 109 as of 07/04/2023 Problem Problem, abnormal examination (92412971) Encounter for general adult medical examination with abnormal findings (Z00.01) Active confirmed Problem Pulmonary hypertension (54488382) Pulmonary hypertension, unspecified (I27.20) Active confirmed Problem Anxiety (99206146) Anxiety (F41.9) Active confi rmed Problem Gastroesophageal reflux disease without esophagitis (189313771) Gastroesophageal reflux disease without esophagitis (K21.9) Active confirmed Problem Gastroesophageal reflux disease (130091411) GERD without esophagitis (K21.9) Active confirmed Problem History of excision of intestinal structure (273873979) S/P cholecystectomy (Z90.49) Active confirmed Problem Acquired hypertrophic pyloric stenosis (76615846) Gastric outlet obstruction (K31.1) Active confirmed Problem Moderate recurrent major depression (24334993) MDD (major depressive disorder), recurrent episode, moderate (F33.1) Active confirmed Problem Bradycardia (85695313) Chronic sinus bradycardia (R00.1) Active confirmed Problem Mild recurrent major depression (13085505) Major depressive disorder, recurrent, mild (F33.0) 2014 Active confirmed [id number] - Problem Male erectile disorder (701199364) Male erectile disorder (F52.21) 2014 Active confirmed [id number] - Problem Atherosclerosis of aorta (91882845) Atherosclerosis of aorta (I70.0) 2015 Active confirmed CXR done on 05/15/2023 per DC pg 23 Problem History of malignant neoplasm of prostate (563052655) Personal history of malignant neoplasm of prostate (Z85.46) 2014 Active confirmed [id number] - Problem Cataract (375418724) Unspecified cataract (H26.9) 2014 Problem resolved confirmed [id number] - Problem Low back pain (633230135) Low back pain (M54.5) 2015 Problem resolved confirmed [id number] - Problem Calculus of kidney (33138089) Calculus of kidney (N20.0) 2015 Problem resolved confirmed [id number] - Problem Urolithiasis (disorder) (58061338) Urinary calculus, unspecified (N20.9) 2015 Problem resolved confirmed [id number] - Problem Urinary tract infectious disease (disorder) (69530596) Urinary tract infection, site not specified (N39.0) 2015 Problem resolved confirmed [id number] - Problem Adult health examination (872878883) Encounter for general adult medical examination without abnormal findings (Z00.00) 2016 Problem resolved confirmed [id number] - Problem BMI less than 20 (973891459) Body mass index (BMI) 19 or less, adult (Z68.1) 2014 Problem resolved confirmed [id number]-764983 - Problem Normal body mass index (39369448) Body mass index (BMI) 24.0-24.9, adult (Z68.24) 2015 Problem resolved confirmed [id number] - Problem Body mass index 25-29 - overweight (395680792) Body mass index (BMI) 28.0-28.9, adult (Z68.28) 2016 Problem resolved confirmed [id number] - Vital Signs Heart Rate 57 /min 08/06/2024 Blood pressure diastolic 42 mm Hg 08/06/2024 Oximetry 97 % 08/06/2024 Height 67 in 08/06/2024 Blood pressure systolic 117 mm Hg 08/06/2024 Weight 145 lbs 08/06/2024 BMI 22.71 kg/m2 08/06/2024 Encounters Encounter Location Date Provider Diagnosis [place] [address] [place] [id number] 06/20/2024 ACOSTA SIERRA Encounter for genera l adult medical examination without abnormal findings Z00.00 ; Pulmonary hypertension, unspecified I27.20 ; MDD (major depressive disorder), recurrent episode, moderate F33.1 ; 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 classified elsewhere G63 ; Other chcf (current) drug therapy Z79.899 ; Mixed hyperlipidemia E78.2 ; Essential tremor G25.0 ; Gastroesophageal reflux disease without esophagitis K21.9 and BMI 23.0-23.9, adult Z68.23 [place] [address] [place] [id number] 07/30/2024 ACOSTA SIERRA Mixed hyperlipidemia E78.2 ; Other ocean transportation intermediary (current) drug therapy Z79.899 ; Atherosclerosis of aorta I70.0 ; Calculus of kidney N20.0 and IFG (impaired fasting glucose) R73.01 [place] [address] [place] [id number] 08/06/2024 ACOSTA SIERRA MDD (major depressiv e disorder), recurrent episode, moderate F33.1 ; Pulmonary hypertension, unspecified I27.20 ; Other ocean transportation intermediary (current) drug therapy Z79.899 ; Essential tremor G25.0 ; Encounter for screening for other disorder Z13.89 and BMI 22.0-22.9, adult Z68.22 [place] [address] [place] [id number] 08/21/2024 [facility] [place] [address] [place], [place] [phone] 03/27/2024 ELKIN DOMÍNGUEZ [place] [address] [place] [address], [place] [phone] 06/05/2024 ACOSTA SIERRA Assessments Encounter Date Diagnosis (ICD Code) Assessment Notes Treatment Notes Treatment Clinical Notes Section Notes 06/20/2024 Encounter for general adult medical examination without abnormal findings (ICD-10 - Z00.00) PT VERBALLY CONSENTED TO ANNUAL WELLNESS EXAM 06/20/2024 Pulmonary hypertension, unspecified (ICD-10 - I27.20) Patient advised to continue current medications. I will monitor ECHO. 07/30/2024 Mixed hyperlipidemia (ICD-10 - E78.2) 08/06/2024 MDD (major depressive disorder), recurrent episode, moderate (ICD-10 - F33.1) Patient advised to continue applicable medication regimen, exercise regularly and avoid substance abuse. 08/06/2024 Pulmonary hypertension, unspecified (ICD-10 - I27.20) Patient advised to continue current medications. I will monitor ECHO. 08/06/2024 Other ocean transportation intermediary (current) drug therapy (ICD-10 - Z79.899) Labs placed 07/30/2024 Other ocean transportation intermediary (current) drug therapy (ICD-10 - Z79.899) 06/20/2024 MDD (major depressive disorder), recurrent episode, moderate (ICD-10 - F33.1) Patient advised to continue applicable medication regimen, exercise regularly and avoid substance abuse. 06/20/2024 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 classified elsewhere (ICD-10 - G63) Patient advised to continue current medications as prescribed, check glucose daily, follow a low cholesterol diet, continue daily foot exams and have annual eye exams. 07/30/2024 Atherosclerosis of aorta (ICD-10 - I70.0) 08/06/2024 Essential tremor (ICD-10 - G25.0) Patient has been explained possible etiologies for tremors. She was explained about beta blockers being helpful for this issue. 08/06/2024 Encounter for screening for other disorder (ICD-10 - Z13.89) 07/30/2024 Calculus of kidney (ICD-10 - N20.0) 06/20/2024 Other chcf (current) drug therapy (ICD-10 - Z79.899) Continue current regimen 06/20/2024 Mixed hyperlipidemia (ICD-10 - E78.2) Patient has been instructed to follow a low fat diet, avoid fried foods. Exercise daily as tolerated and monitor weight. Consider [employer] evaluation if control of Cholesterol LDL and triglycerides levels are difficult to control. Monitor for medication side effects (if taking any). Follow labs report. 07/30/2024 IFG (impaired fasting glucose) (ICD-10 - R73.01) 08/06/2024 BMI 22.0-22.9, adult (ICD-10 - Z68.22) [...] diet and exercise regimen. Plan Of Treatment Future Test Test Name Order Date CMP (Comprehensive Metabolic panel) 10/2020 PSA (FREE AND TOTAL) 04/27/2021 CBC With Differential/Platelet Lipid Panel 04/27/2021 CMP (Comprehensive Metabolic panel) 09/2022 Vitamin B12, Serum 05/27/2022 Hemoglobin A1c 05/27/2022 CBC With Differential/Platelet 3 Lipid Panel 05/27/2022 Vitamin B12, Serum 07/11/2023 PSA (FREE AND TOTAL) 07/11/2023 Lipid Panel 07/11/2023 US Abdomen Complete 03/19/2024 CMP (Comprehensive Metabolic panel) 07/21 CBC With Differential/Platelet Microalbumin/Creatinine Random Urine Lipid Panel 08/06/2024 Next Appt Details Provider Name:DICKSON WERNER, 0 05/27/2025 09:40:00 AM, [address] , [facility], [place], [place], [phone], Insurance Providers Payer Name Payer Address Payer Phone Subscriber Number Group Number Insured Name Patient Relationship to Insured Coverage Start Date Coverage End Date [employer] MEDICARE [address] [address] [place], [place] [id number] [phone] [id number] RONALD NICHOLS Self - patient is the insured 3 Medical (General) History Medical History History ICD Code Kidney disease MDD Hospitalization History Reason Date(Month/Year) Nausea/Vomiting/Hematemesis 08/10/2020
== END 2025-03-26 14:12 | disposition home or self-care (01) ==
LOC: HO.HUSH 13:33
PROVIDERS: PCP Internal Medicine; Visit Provider Urology
DX: N20.0 Calculus of kidney (principal)
CPT/HCPCS: 99213; G2211

== ENCOUNTER → 2025-03-26 13:32 | Outpatient (BNVA) | payer MEDICARE, SELFPAY | PROVIDERS: PCP Internal Medicine; Visit Provider Urology | DX: N20.0 Calculus of kidney (principal) | CPT/HCPCS: 99212 ==